=== PATIENT | male | born 1945 | race American Indian/Alaskan Native ===

== ENCOUNTER 2016-09-16 23:19 | Inpatient (IN) | payer MEDICARE, OTHER ==
--- NOTE | 2016-09-16 23:33 | C.PDOC ---
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 Pt is awake and alert oriented x3, uncooperative and refuses to be treated or examined. Time Seen by Provider: 09/16/16 23:32 Chief Complaint (Nursing): Altered Mental Status History Per: Patient History/Exam Limitations: None Onset/Duration Of Symptoms: Hrs Current Symptoms Are (Timing): Still Present Usual Baseline: Alert Oriented Speech Is: Normal Severity: None Recent travel outside of the [place]: No Additional History Per: Patient Past Medical History Reviewed: Historical Data, Nursing Documentation, Vital Signs Vital Signs: Last Vital Signs Temp 97.5 F L 09/16/16 23:30 Pulse 124 H 09/16/16 23:30 Resp 18 09/16/16 23:30 BP 241/116 H 09/16/16 23:30 Pulse Ox 99 09/16/16 23:59 Family History: States: Unknown Family Hx Review Of Systems Constitutional: Negative for: Fever, Chills ENT: Negative for: Throat Pain Cardiovascular: Negative for: Chest Pain Respiratory: Negative for: Shortness of Breath Gastrointestinal: Negative for: Nausea, Vomiting, Abdominal Pain Genitourinary: Negative for: Dysuria Musculoskeletal: Negative for: Back Pain Skin: Negative for: Rash Neurological: Positive for: Confusion Psych: Negative for: Anxiety ED Course And Treatment ECG: Interpreted By Me, Viewed By Me ECG Rhythm: Sinus Rhythm, Nonspecific Changes O2 Sat by Pulse Oximetry: 99 (Ra) Pulse Ox Interpretation: Normal - Radiology CXR: Interpreted by Me, Viewed By Me CXR Interpretation: No: Infiltrates, Fracture, Pnemothorax Medical Decision Making Medical Decision Making: see paper chart Disposition Discussed With : Yaniv Dinero Comment: accepted the pt on his service Doctor Will See Patient In The: Hospital Counseled Patient/Family Regarding: Studies Performed, Diagnosis - Disposition Disposition: HOSPITALIZED Disposition Time: 23:33 Condition: FAIR - POA Present On Arrival: None - Clinical Impression Clinical Impression: Change in mental status, Dementia - Scribe Statement The provider has reviewed the documentation as recorded by the Scribe Ashia almazan All medical record entries made by the Scribe were at my direction and personally dictated by me. I have reviewed the chart and agree that the record accurately reflects my personal performance of the history, physical exam, medical decision making, and the department course for this patient. I have also personally directed, reviewed, and agree with the discharge instructions and disposition. Decision To Admit - Pt Status Changed To: Hospital Disposition Of: Inpatient - Admit Certification Admit to Inpatient:: After my assessment, the patient will require hospitalization for at least two midnights. This is because of the severity of symptoms shown, intensity of services needed, and/or the medical risk in this patient being treated as an outpatient. - InPatient: Physician Admission Certification:: After my assessment, the patient will require hospitalization for at least two midnights. This is because of the severity of symptoms shown, intensity of services needed, and/or the medical risk in this patient being treated as an outpatient. - . Bed Request Type: Telemetry Admitting Physician: Yaniv Dinero Patient Diagnosis: Change in mental status, Dementia
[2016-09-17] MEDS ORDERED: Enalaprilat 2.5 MG/2 ML IV ONE (05:34)
[2016-09-17] MEDS ORDERED: Metoprolol 1 mg/ml Inj IVP ONE (05:34)
[2016-09-17] MEDS ORDERED: Nitroglycerin 2% Ointment Foilpak UD TOP ONE (05:34)
--- NOTE | 2016-09-17 07:33 | CT ---
PROCEDURE: CT HEAD WITHOUT CONTRAST. HISTORY: Altered mental status COMPARISON: None available. TECHNIQUE: Axial computed tomography images were obtained through the head/brain without intravenous contrast. Radiation dose: Total exam DLP = 1075 mGy-cm. This CT exam was performed using one or more of the following dose reduction techniques: Automated exposure control, adjustment of the mA and/or kV according to patient size, and/or use of iterative reconstruction technique. FINDINGS: HEMORRHAGE: No intracranial hemorrhage. BRAIN: Cerebral and cerebellar atrophy. Scattered focal lucencies in the subcortical and periventricular white matter suggestive for chronic microvascular ischemic change. Encephalomalacia in the left posterior parietal/ temporal lobe which may be consistent with chronic infarct. Additional hypodensity in the anterior right temporal lobe inferiorly which may represent the sequelae of chronic infarct. Bilateral lacunar infarcts. VENTRICLES: Unremarkable. No hydrocephalus. CALVARIUM: Unremarkable. PARANASAL SINUSES: Unremarkable as visualized. No significant inflammatory changes. MASTOID AIR CELLS: Unremarkable as visualized. No inflammatory changes. OTHER FINDINGS: Intracranial arterial calcifications. IMPRESSION: Cerebral and cerebellar atrophy. Small vessel ischemic/degenerative changes. Encephalomalacia in the left posterior parietal/ temporal lobe which may be consistent with chronic infarct. Additional hypodensity in the anterior right temporal lobe inferiorly which may represent the sequelae of chronic infarct. Additional findings as above. If focal neurologic deficit persists, consider MRI. These findings were preliminarily reported at 12:22 a.m. on 09/17/[address] Robert Toribio from [facility].
[2016-09-17 07:44] LABS: INR 1.1
[2016-09-17 07:45] LABS: BASO % 0.5 % (0.0-2.0); EOS % 0.2 % (0.0-4.0); HEMATOCRIT 40.3 % (35.0-51.0); LYMPH # 0.9 K/uL (1.0-4.3); LYMPH % 11.8 % (20.0-40.0); MEAN CELL VOLUME 88.4 fL (80.0-94.0); MEAN CORPUSCULAR HEMOGLOBIN 28.8 pg (27.0-31.0); MEAN CORPUSCULAR HGB CONC 32.6 g/dL (33.0-37.0); MEAN PLATELET VOLUME 9.5 fL (7.2-11.7); MONO # 0.8 K/uL (0.0-0.8); MONO % 9.6 % (0.0-10.0); RED CELL DISTRIBUTION WIDTH 14.6 % (11.5-14.5)
[2016-09-17 08:08] LABS: ALB/GLOB RATIO 1.4 (1.0-2.1); ALKALINE PHOSPHATASE 124 U/L (38-126); AST/SGOT 33 U/L (17-59); BILIRUBIN,DIRECT 0.5 mg/dL (0.0-0.4); BILIRUBIN,TOTAL 0.9 mg/dL (0.2-1.3); TOTAL PROTEIN 8.4 g/dL (6.3-8.3)
[2016-09-17 08:09] LABS: ALT/SGPT 11 U/L (21-72)
[2016-09-17 08:11] LABS: ALB/GLOB RATIO 1.4 (1.0-2.1); ALCOHOL SERUM < 20 mg/dl (0-10); ALKALINE PHOSPHATASE 142 U/L (38-126); ALT/SGPT 15 U/L (21-72); AST/SGOT 32 U/L (17-59); BILIRUBIN,TOTAL 0.9 mg/dL (0.2-1.3); BLOOD UREA NITROGEN 31 mg/dL (9-20); CALCIUM 10.4 mg/dl (8.6-10.4); CARBON DIOXIDE 27 mmol/L (22-30); CHLORIDE 101 mmol/L (98-107); GFR AFRICAN-AMERICAN 38; GLUCOSE,RANDOM 123 mg/dL (75-110); POTASSIUM 3.8 mmol/L (3.6-5.2); SODIUM 142 mmol/L (132-148); TOTAL PROTEIN 8.4 g/dL (6.3-8.3)
[2016-09-17 08:37] LABS: THYROID STIMULATING HORMONE 0.47 mIU/L (0.46-4.68)
--- NOTE | 2016-09-17 08:37 | RAD ---
HISTORY: PORTABLE CXR COMPARISON: No prior. FINDINGS: LUNGS: Mild venous congestion. Biapical pleural thickening with upper lobe granulomatous changes. Bibasilar breast and nipple shadows. PLEURA: No significant pleural effusion identified, no pneumothorax apparent. CARDIOVASCULAR: Tortuous aorta. Mild cardiomegaly. OSSEOUS STRUCTURES: No significant abnormalities. VISUALIZED UPPER ABDOMEN: Normal. OTHER FINDINGS: None. IMPRESSION: Mild venous congestion. Biapical pleural thickening with upper lobe granulomatous changes. Bibasilar breast and nipple shadows.
[2016-09-17 08:45] LABS: RBC URINE 1 /hpf (0-3); URINE BILIRUBIN NEGATIVE (NEGATIVE); URINE BLOOD NEGATIVE (NEGATIVE); URINE COLOR Yellow (YELLOW); URINE GLUCOSE (UA) 1+ mg/dL (Normal); URINE KETONE TRACE mg/dL (NEGATIVE); URINE LEUKOCYTE ESTERASE NEG Leu/uL (Negative); URINE PROTEIN 1+ mg/dL (NEGATIVE); URINE UROBILINOGEN NORMAL mg/dL (0.2-1.0); WBC URINE 1 /hpf (0-5)
[2016-09-17 09:12] LABS: FOLATE > 20.0 ng/mL
[2016-09-17] MEDS: Pantoprazole 40 mg EC Tab PO SCH (09:52)
[2016-09-17] MEDS ORDERED: Enoxaparin 30 mg Syringe SC SCH (10:00)
--- NOTE | 2016-09-17 10:44 | CP.PCM.HP ---
Past Patient History - Past Social History Smoking Status: Heavy Smoker > 10 Cigarettes Daily - CARDIAC Hx Cardiac Disorders: Yes Hx Hypertension: Yes Hx Peripheral Vascular Disease: Yes - PSYCHIATRIC Hx Substance Use: No - ANESTHESIA Hx Anesthesia: No Meds Allergies/Adverse Reactions: Allergies Allergy/AdvReac Type Severity Reaction Status Date / Time No Known Allergies Allergy Verified 09/16/16 23:44 Physical Exam - Constitutional Appears: Well - Head Exam Head Exam: ATRAUMATIC, NORMAL INSPECTION, NORMOCEPHALIC - Eye Exam Eye Exam: EOMI, Normal appearance, PERRL Pupil Exam: NORMAL ACCOMODATION, PERRL - ENT Exam ENT Exam: Mucous Membranes Moist, Normal Exam - Neck Exam Neck exam: Positive for: Normal Inspection - Respiratory Exam Respiratory Exam: Decreased Breath Sounds - Cardiovascular Exam Cardiovascular Exam: REGULAR RHYTHM, +S1, +S2 - GI/Abdominal Exam GI & Abdominal Exam: Diminished Bowel Sounds, Soft - Rectal Exam Rectal Exam: Deferred Results - Vital Signs Recent Vital Signs: Last Vital Signs Temp 98.1 F 09/17/16 08:34 Pulse 72 09/17/16 08:34 Resp 18 09/17/16 08:34 BP 207/93 H 09/17/16 08:34 Pulse Ox 99 09/17/16 08:34 - Labs Result Diagrams: 09/17/16 00:30 09/17/16 00:30 Labs: Laboratory Results - last 24 hr 09/17/16 09/17/16 09/17/16 06:15 07:32 07:32 ESR 30 H Total Bilirubin 0.9 Direct Bilirubin 0.5 H AST 33 ALT 11 L Alkaline Phosphatase 124 Ammonia C-React Prot High Sens Total Protein 8.4 H Albumin 4.9 Globulin 3.5 Albumin/Globulin Ratio 1.4 Vitamin B12 733 Folate > 20.0 TSH 3rd Generation 0.47 Urine Color Yellow Urine Clarity Hazy Urine pH 5.0 Ur Specific [place] 1.018 Urine Protein 1+ H Urine Glucose (UA) 1+ H Urine Ketones Trace Urine Blood Negative Urine Nitrate Negative Urine Bilirubin Negative Urine Urobilinogen Normal Ur Leukocyte Esterase Neg Urine WBC (Auto) 1 Urine RBC (Auto) 1 Ur Squamous Epith Cells < 1 Hyaline Casts 6-10 H 09/17/16 09/17/16 07:32 07:32 ESR Total Bilirubin Direct Bilirubin AST ALT Alkaline Phosphatase Ammonia < 9 L C-React Prot High Sens > 15.00 H Total Protein Albumin Globulin Albumin/Globulin Ratio Vitamin B12 Folate TSH 3rd Generation Urine Color Urine Clarity Urine pH Ur Specific [place] Urine Protein Urine Glucose (UA) Urine Ketones Urine Blood Urine Nitrate Urine Bilirubin Urine Urobilinogen Ur Leukocyte Esterase Urine WBC (Auto) Urine RBC (Auto) Ur Squamous Epith Cells Hyaline Casts
[2016-09-17] MEDS: Nitroglycerin 2% Ointment Foilpak UD TOP PRN (18:00)
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
[2016-09-18] MEDS: Nitroglycerin 2% Ointment Foilpak UD TOP PRN (00:27)
[2016-09-18] MEDS: Pantoprazole 40 mg EC Tab PO SCH (19:10)
[2016-09-18] MEDS: Enoxaparin 40 mg Syringe SC SCH (19:11)
--- NOTE | 2016-09-18 22:33 | CP.PCM.PN ---
Objective - Vital Signs/Intake and Output Vital Signs (last 24 hours): Temp Pulse Resp BP Pulse Ox 99.2 F 80 20 195/89 H 98 09/17/16 21:47 09/17/16 21:47 09/17/16 21:47 09/17/16 21:47 09/17/16 21:47 - Medications Medications: Current Medications Enoxaparin Sodium (Lovenox) 40 mg SC DAILY [facility] Last Admin: 09/18/16 19:11 Dose: Not Given Hydralazine HCl (Apresoline) 50 mg PO Q8 [facility] Last Admin: 09/18/16 21:41 Dose: Not Given Nitroglycerin (Nitro-Bid 2% Oint) 1 ea TOP Q6 PRN PRN Reason: Diastolic blood pressure Last Admin: 09/18/16 00:27 Dose: 1 ea Pantoprazole Sodium (Protonix Ec Tab) 40 mg PO DAILY [facility] Last Admin: 09/18/16 19:10 Dose: Not Given Thiamine HCl (Vitamin B1 Tab) 100 mg PO DAILY [facility] Last Admin: 09/18/16 19:10 Dose: Not Given - Labs Labs: PT 12.7 SECONDS (9.7-12.2) H 09/17/16 00:30 INR 1.1 09/17/16 00:30
[2016-09-19] MEDS: Nitroglycerin 2% Ointment Foilpak UD TOP PRN ×2 (06:11→11:24)
--- NOTE | 2016-09-19 09:50 | CP.PCM.PN ---
<JulienZari - Last Filed: 09/19/16 10:46> Subjective - Date & Time of Evaluation Date of Evaluation: 09/19/16 Time of Evaluation: 10:46 - Subjective Subjective: Medicine Progress Note Patient seen and examined. Patient was asleep but woken up easily when called. Patient says that he feels fine today. Patient appears annoyed that he was woken up and states he does not want anything from me. Denies chest pain, lack of appetite and shortness of breath. Objective - Vital Signs/Intake and Output Vital Signs (last 24 hours): Temp Pulse Resp BP Pulse Ox 97.7 F 89 20 166/75 H 97 09/19/16 08:25 09/19/16 08:25 09/19/16 08:25 09/19/16 08:25 09/17/16 23:40 Intake and Output: 09/19/16 09/19/16 06:59 18:59 Intake Total 240 Balance 240 - Medications Medications: Current Medications Enoxaparin Sodium (Lovenox) 40 mg SC DAILY [facility] Last Admin: 09/18/16 19:11 Dose: Not Given Hydralazine HCl (Apresoline) 50 mg PO Q8 [facility] Last Admin: 09/19/16 06:12 Dose: 50 mg Nitroglycerin (Nitro-Bid 2% Oint) 1 ea TOP Q6 PRN PRN Reason: Diastolic blood pressure Last Admin: 09/19/16 06:11 Dose: 1 ea Pantoprazole Sodium (Protonix Ec Tab) 40 mg PO DAILY [facility] Last Admin: 09/18/16 19:10 Dose: Not Given Thiamine HCl (Vitamin B1 Tab) 100 mg PO DAILY [facility] Last Admin: 09/18/16 19:10 Dose: Not Given - Labs Labs: PT 12.7 SECONDS (9.7-12.2) H 09/17/16 00:30 INR 1.1 09/17/16 00:30 - Constitutional Appears: Non-toxic, No Acute Distress - Head Exam Head Exam: ATRAUMATIC, NORMOCEPHALIC - Eye Exam Eye Exam: EOMI, Normal appearance - ENT Exam ENT Exam: Mucous Membranes Moist - Respiratory Exam Respiratory Exam: Clear to Ausculation Bilateral, NORMAL BREATHING PATTERN - Cardiovascular Exam Cardiovascular Exam: REGULAR RHYTHM, +S1, +S2 - GI/Abdominal Exam GI & Abdominal Exam: Soft, Normal Bowel Sounds - Extremities Exam Extremities Exam: Normal Inspection. absent: Pedal Edema - Neurological Exam Neurological Exam: Alert, Awake - Psychiatric Exam Psychiatric exam: Normal Affect, Normal Mood - Skin Skin Exam: Dry, Intact, Normal Color, Warm Assessment and Plan - Assessment and Plan (Free Text) Assessment: 1. Altered Mental status Neuro Dr Hardwick on board- help appreciated f/u MRI brain CT head showed diffuse atrophy, small vessel disease (see full report) physical therapy eval Fall risk protocol f/u carotid dopplers f/u EEG UDS negative Ammonia level normal f/u psych evaluation 2. Alcohol abuse fall risk protocol IVF THiamine PO daily Multivitamin PO daily FOlic acid PO daily 3. CEM BUN/Cr 31/2.1 on 09/17 f/u CMP today 4. HTN Uncontrolled Hydralazine 50mg PO q8h Start Norvasc 5mg PO daily today Monitor and adjust meds 5. Prophylactic measures SCDs Protonix all management per Dr Dinero. discussed with attending. <Yaniv Dinero S - Last Filed: 09/19/16 15:17> Objective - Vital Signs/Intake and Output Vital Signs (last 24 hours): Temp Pulse Resp BP Pulse Ox 97.7 F 88 20 146/80 97 09/19/16 08:25 09/19/16 13:24 09/19/16 08:25 09/19/16 14:00 09/17/16 23:40 Intake and Output: 09/19/16 09/19/16 06:59 18:59 Intake Total 240 480 Output Total 400 Balance 240 80 - Medications Medications: Current Medications Amlodipine Besylate (Norvasc) 5 mg PO DAILY [facility] Last Admin: 09/19/16 10:07 Dose: 5 mg Enoxaparin Sodium (Lovenox) 40 mg SC DAILY [facility] Last Admin: 09/19/16 10:07 Dose: 40 mg Folic Acid (Folic Acid) 1 mg PO DAILY [facility] Last Admin: 09/19/16 10:07 Dose: 1 mg Hydralazine HCl (Apresoline) 50 mg PO Q8 [facility] Last Admin: 09/19/16 14:37 Dose: 50 mg Multivitamins (Hexavitamin) 1 tab PO DAILY [facility] Last Admin: 09/19/16 10:07 Dose: 1 tab Nitroglycerin (Nitro-Bid 2% Oint) 1 ea TOP Q6 PRN PRN Reason: Diastolic blood pressure Last Admin: 09/19/16 11:24 Dose: 1 ea Pantoprazole Sodium (Protonix Ec Tab) 40 mg PO DAILY [facility] Last Admin: 09/19/16 10:07 Dose: 40 mg Thiamine HCl (Vitamin B1 Tab) 100 mg PO DAILY [facility] Last Admin: 09/19/16 10:07 Dose: 100 mg - Labs Labs: 09/19/16 11:51 09/19/16 11:51 PT 12.7 SECONDS (9.7-12.2) H 09/17/16 00:30 INR 1.1 09/17/16 00:30 Attending/Attestation - Attestation I have personally seen and examined this patient.: Yes I have fully participated in the care of the patient.: Yes I have reviewed all pertinent clinical information, including history, physical exam and plan: Yes Notes (Text): 09/19/16 15:17 admited for further wokr up amrik underwood from dr. woodson pt refsues all work up
[2016-09-19] MEDS ORDERED: Sodium Chloride 0.9% 1,000 ML IV SCH (10:00)
[2016-09-19] MEDS: Multiple Vitamins Tab PO SCH (10:07)
[2016-09-19] MEDS: Enoxaparin 40 mg Syringe SC SCH (10:07)
[2016-09-19] MEDS: Pantoprazole 40 mg EC Tab PO SCH (10:07)
[2016-09-19 11:59] LABS: BASO % 0.6 % (0.0-2.0); EOS # 0.3 K/uL (0.0-0.7); EOS % 5.2 % (0.0-4.0); HEMATOCRIT 39.7 % (35.0-51.0); LYMPH # 1.5 K/uL (1.0-4.3); LYMPH % 22.1 % (20.0-40.0); MEAN CELL VOLUME 89.3 fL (80.0-94.0); MEAN CORPUSCULAR HEMOGLOBIN 29.2 pg (27.0-31.0); MEAN CORPUSCULAR HGB CONC 32.7 g/dL (33.0-37.0); MEAN PLATELET VOLUME 9.7 fL (7.2-11.7); MONO # 0.7 K/uL (0.0-0.8); MONO % 10.5 % (0.0-10.0); NRBC % 0.1 % (0.0-2.0); RED CELL DISTRIBUTION WIDTH 14.2 % (11.5-14.5); WHITE BLOOD COUNT 6.7 K/uL (4.8-10.8)
[2016-09-19 12:08] LABS: CHLORIDE 96 mmol/L (98-107)
[2016-09-19 12:09] LABS: POTASSIUM 3.7 mmol/L (3.6-5.2); SODIUM 137 mmol/L (132-148)
[2016-09-19 12:11] LABS: ALB/GLOB RATIO 1.5 (1.0-2.1); AST/SGOT 25 U/L (17-59); BILIRUBIN,TOTAL 0.8 mg/dL (0.2-1.3); CARBON DIOXIDE 31 mmol/L (22-30); GFR AFRICAN-AMERICAN > 60; TOTAL PROTEIN 7.4 g/dL (6.3-8.3)
[2016-09-19 12:12] LABS: ALKALINE PHOSPHATASE 107 U/L (38-126); ALT/SGPT 16 U/L (21-72); BLOOD UREA NITROGEN 23 mg/dL (9-20); CALCIUM 9.9 mg/dl (8.6-10.4); GLUCOSE,RANDOM 103 mg/dL (75-110)
--- NOTE | 2016-09-19 14:52 | PCM.PSYCH ---
Initial Psychiatric Evaluation - Initial Psychiatric Evaluation Chief Complaint (in patient's own words): "Nothing" History of Present Illness and Precipitating Events: The patient is seen, chart reviewed and case discussed. Consultation was requested for patient's acute mental status change. This is a 70-year-old male, very uncooperative and is a poor historian. He claims he lives with his mother in [place] but it is not confirmed. Given his age, he may not be living with his mother. There is no phone numbers in the chart for the rewriter to call, but his nurse told me that his cousin was called by our patient case manager. Patient's past history is unclear as he is not answering questions appropriately. He is very evasive and he says "Oh my God" to most of the questions and looks away or tries to fall back asleep. His memory seems to be very poor, just as his attention. He seems to be oriented to place but not to time or person. It is reported that he may have alcohol dependence but it is not clear when. He is not in withdrawal right now. He denied drug use. Past psych hx: Denied but is guarded/evasive Medical hx: HTN? Family psych hx: Unknown Current Medications: Active Medications Generic Name Dose Route Start Last Admin Trade Name Freq PRN Reason Stop Dose Admin Amlodipine Besylate 5 mg 09/19/16 10:09/19/16 10:07 Norvasc PO 5 mg DAILY [facility] Administration Enoxaparin Sodium 40 mg 09/18/16 10:00 09/19/16 10:07 Lovenox SC 40 mg DAILY [facility] Administration Folic Acid 1 mg 09/19/16 10:09/19/16 10:07 Folic Acid PO 1 mg DAILY [facility] Administration Hydralazine HCl 50 mg 09/18/16 19:09 09/19/16 14:37 Apresoline PO 50 mg Q8 [facility] Administration Multivitamins 1 tab 09/19/16 10:00 09/19/16 10:07 Hexavitamin PO 1 tab DAILY [facility] Administration Nitroglycerin 1 ea 09/17/16 11:17 09/19/16 11:24 Nitro-Bid 2% Oint TOP 1 ea Q6 PRN Administration Diastolic blood pressure Pantoprazole Sodium 40 mg 09/17/16 10:00 09/19/16 10:07 Protonix Ec Tab PO 40 mg DAILY [facility] Administration Thiamine HCl 100 mg 09/18/16 10:00 09/19/16 10:07 Vitamin B1 Tab PO 100 mg DAILY [facility] Administration Past Psychiatric History - Past Psychiatric History Pertinent Medical Hx (Current Medical&Sleep Prob, Allergies): Allergies Allergy/AdvReac Type Severity Reaction Status Date / Time No Known Allergies Allergy Verified 09/16/16 23:44 Unobtainable 09/16/16 Review of Systems - Psychiatric Psychiatric: Irritability. absent: Homicidal Ideation, Suicidal Ideation Mental Status Examination - Personal Presentation Personal Presentation: Looks stated age - Affect Affect: Blunted (odd) - Motor Activity Motor Activity: Other (fidgety) - Reliability in Providing Information Reliability in Providing Information: Poor, due to alteration in thoughts, Poor , due to cognitve impairment - Speech Speech: Disorganized - Mood Mood: Other (irate) - Formal Thought Process Formal Thought Process: Paranoia (Likely), Loosening of associations - Cognitive Functions Orientation: Place Sensorium: Drowsy Attention/Concentration: Easily distracted Abstract Thinking: [place] Estimate of Intelligence: Below average Judgement: Imparied, as evidence by: Poor judgement Memory: Recent impaired, as evidence by: Inability to recall events of the day, Remote impaired as evidenced by: Inability to recall sig life events - Risk Risk: Diminished functioning - Limitations Limitations: Living alone DSM 5 DX - DSM 5 DSM 5 Diagnosis: Dementia w/o behavioal disturbances - Recommended/Plan of Treatment Treatment Recommendations and Plan of Treatment: 1. Dementia work-up, i.e. TFTs, Vit B12, Folate, RPR, etc. 2. prn haldol, inderal or trazodone 3. Do not use benzos unless he is very agitated, due to risk of confusion and falls 4. Frequent orientation, support and psychoeducation 5. Contact cousin re discharge planning 33 min
[2016-09-20] MEDS: Pantoprazole 40 mg EC Tab PO SCH (09:54)
[2016-09-20] MEDS: Multiple Vitamins Tab PO SCH (09:54)
[2016-09-20] MEDS: Enoxaparin 40 mg Syringe SC SCH (09:55)
[2016-09-20 11:40] LABS: WHITE BLOOD COUNT 5.5 K/uL (4.8-10.8)
[2016-09-20 11:48] LABS: BASO % 0.6 % (0.0-2.0); EOS # 0.4 K/uL (0.0-0.7); EOS % 6.7 % (0.0-4.0); HEMATOCRIT 37.1 % (35.0-51.0); LYMPH # 1.1 K/uL (1.0-4.3); LYMPH % 20.3 % (20.0-40.0); MEAN CELL VOLUME 88.8 fL (80.0-94.0); MEAN CORPUSCULAR HEMOGLOBIN 29.6 pg (27.0-31.0); MEAN CORPUSCULAR HGB CONC 33.3 g/dL (33.0-37.0); MONO # 0.6 K/uL (0.0-0.8); MONO % 11.8 % (0.0-10.0); NRBC % 0.1 % (0.0-2.0); RED CELL DISTRIBUTION WIDTH 14.4 % (11.5-14.5)
[2016-09-20 11:54] LABS: CHLORIDE 100 mmol/L (98-107); POTASSIUM 3.5 mmol/L (3.6-5.2); SODIUM 140 mmol/L (132-148)
[2016-09-20 11:56] LABS: GFR AFRICAN-AMERICAN > 60
[2016-09-20 11:57] LABS: ALB/GLOB RATIO 1.3 (1.0-2.1); ALKALINE PHOSPHATASE 98 U/L (38-126); ALT/SGPT 13 U/L (21-72); AST/SGOT 31 U/L (17-59); BILIRUBIN,TOTAL 0.6 mg/dL (0.2-1.3); BLOOD UREA NITROGEN 18 mg/dL (9-20); CARBON DIOXIDE 29 mmol/L (22-30); GLUCOSE,RANDOM 92 mg/dL (75-110); TOTAL PROTEIN 7.1 g/dL (6.3-8.3)
--- NOTE | 2016-09-20 12:57 | CP.PCM.PN ---
Subjective - Date & Time of Evaluation Date of Evaluation: 09/20/16 Time of Evaluation: 09:40 - Subjective Subjective: clinically same Objective - Vital Signs/Intake and Output Vital Signs (last 24 hours): Temp Pulse Resp BP Pulse Ox 98.2 F 65 20 184/77 H 96 09/20/16 11:49 09/20/16 11:49 09/20/16 11:49 09/20/16 11:49 09/20/16 11:49 - Medications Medications: Current Medications Amlodipine Besylate (Norvasc) 10 mg PO DAILY [facility] Enoxaparin Sodium (Lovenox) 40 mg SC DAILY [facility] Last Admin: 09/20/16 09:55 Dose: 40 mg Folic Acid (Folic Acid) 1 mg PO DAILY [facility] Last Admin: 09/20/16 09:54 Dose: 1 mg Haloperidol (Haldol) 2 mg PO Q4H PRN PRN Reason: agitation, max 4x/24h Haloperidol Lactate (Haldol) 2 mg IM Q4H PRN PRN Reason: severe agitation, max 4x/24h Hydralazine HCl (Apresoline) 50 mg PO TID [facility] Multivitamins (Hexavitamin) 1 tab PO DAILY [facility] Last Admin: 09/20/16 09:54 Dose: 1 tab Nitroglycerin (Nitro-Bid 2% Oint) 1 ea TOP Q6 PRN PRN Reason: Diastolic blood pressure Last Admin: 09/19/16 11:24 Dose: 1 ea Nitroglycerin (Nitro-Bid 2% Oint) 1 ea TOP Q6 [facility] Pantoprazole Sodium (Protonix Ec Tab) 40 mg PO DAILY [facility] Last Admin: 09/20/16 09:54 Dose: 40 mg Thiamine HCl (Vitamin B1 Tab) 100 mg PO DAILY [facility] Last Admin: 09/20/16 09:54 Dose: 100 mg - Labs Labs: 09/20/16 11:23 09/20/16 11:23 PT 12.7 SECONDS (9.7-12.2) H 09/17/16 00:30 INR 1.1 09/17/16 00:30 - Constitutional Appears: Well - Head Exam Head Exam: ATRAUMATIC, NORMAL INSPECTION, NORMOCEPHALIC - Eye Exam Eye Exam: EOMI, Normal appearance, PERRL Pupil Exam: NORMAL ACCOMODATION, PERRL - ENT Exam ENT Exam: Mucous Membranes Moist, Normal Exam - Neck Exam Neck Exam: Full ROM, Normal Inspection. absent: Lymphadenopathy - Respiratory Exam Respiratory Exam: Decreased Breath Sounds - Cardiovascular Exam Cardiovascular Exam: REGULAR RHYTHM, +S1, +S2 - GI/Abdominal Exam GI & Abdominal Exam: Soft, Diminished Bowel Sounds - Rectal Exam Rectal Exam: Deferred
[2016-09-20] MEDS: Potassium Chloride 20 mEq ER Tab PO SCH (18:39)
[2016-09-20] MEDS: Nitroglycerin 2% Ointment Foilpak UD TOP SCH (18:39)
[2016-09-21] MEDS: Nitroglycerin 2% Ointment Foilpak UD TOP SCH ×6 (00:17→23:59)
[2016-09-21] MEDS: Enoxaparin 40 mg Syringe SC SCH (09:32)
[2016-09-21] MEDS: Potassium Chloride 20 mEq ER Tab PO SCH (09:32)
[2016-09-21] MEDS: Pantoprazole 40 mg EC Tab PO SCH (09:32)
[2016-09-21] MEDS: Multiple Vitamins Tab PO SCH (09:32)
[2016-09-21 11:36] LABS: BASO % 0.9 % (0.0-2.0); EOS # 0.3 K/uL (0.0-0.7); EOS % 5.8 % (0.0-4.0); HEMATOCRIT 37.1 % (35.0-51.0); LYMPH % 20.8 % (20.0-40.0); MEAN CELL VOLUME 88.4 fL (80.0-94.0); MEAN CORPUSCULAR HEMOGLOBIN 29.3 pg (27.0-31.0); MEAN CORPUSCULAR HGB CONC 33.2 g/dL (33.0-37.0); MEAN PLATELET VOLUME 9.7 fL (7.2-11.7); MONO # 0.6 K/uL (0.0-0.8); RED CELL DISTRIBUTION WIDTH 14.2 % (11.5-14.5); WHITE BLOOD COUNT 4.9 K/uL (4.8-10.8)
[2016-09-21 12:08] LABS: CHLORIDE 97 mmol/L (98-107); POTASSIUM 3.9 mmol/L (3.6-5.2); SODIUM 138 mmol/L (132-148)
--- NOTE | 2016-09-21 12:08 | CP.PCM.PN ---
Subjective - Date & Time of Evaluation Date of Evaluation: 09/21/16 Time of Evaluation: 12:00 - Subjective Subjective: clinically same Objective - Vital Signs/Intake and Output Vital Signs (last 24 hours): Temp Pulse Resp BP Pulse Ox 98.0 F 91 H 18 186/90 H 98 09/21/16 07:25 09/21/16 08:44 09/21/16 07:25 09/21/16 07:25 09/21/16 07:25 - Medications Medications: Current Medications Amlodipine Besylate (Norvasc) 10 mg PO DAILY [facility] Last Admin: 09/21/16 09:32 Dose: Not Given Enoxaparin Sodium (Lovenox) 40 mg SC DAILY [facility] Last Admin: 09/21/16 09:32 Dose: Not Given Folic Acid (Folic Acid) 1 mg PO DAILY [facility] Last Admin: 09/21/16 09:31 Dose: Not Given Haloperidol (Haldol) 2 mg PO Q4H PRN PRN Reason: agitation, max 4x/24h Last Admin: 09/20/16 18:41 Dose: 2 mg Haloperidol Lactate (Haldol) 2 mg IM Q4H PRN PRN Reason: severe agitation, max 4x/24h Hydralazine HCl (Apresoline) 50 mg PO TID [facility] Last Admin: 09/21/16 09:31 Dose: Not Given Hydralazine HCl (Apresoline) 5 mg IVP Q6H PRN PRN Reason: Other Hydrochlorothiazide (Hydrodiuril) 25 mg PO DAILY [facility] Multivitamins (Hexavitamin) 1 tab PO DAILY [facility] Last Admin: 09/21/16 09:32 Dose: Not Given Nitroglycerin (Nitro-Bid 2% Oint) 1 ea TOP Q6 PRN PRN Reason: Diastolic blood pressure Last Admin: 09/19/16 11:24 Dose: 1 ea Nitroglycerin (Nitro-Bid 2% Oint) 1 ea TOP Q6 [facility] Last Admin: 09/21/16 06:17 Dose: 1 ea Pantoprazole Sodium (Protonix Ec Tab) 40 mg PO DAILY [facility] Last Admin: 09/21/16 09:32 Dose: Not Given Potassium Chloride (K-Dur 20 Meq Er Tab) 40 meq PO DAILY [facility] Last Admin: 09/21/16 09:32 Dose: Not Given Thiamine HCl (Vitamin B1 Tab) 100 mg PO DAILY [facility] Last Admin: 09/21/16 09:32 Dose: Not Given - Labs Labs: 09/21/16 11:23 09/20/16 11:23 PT 12.7 SECONDS (9.7-12.2) H 09/17/16 00:30 INR 1.1 09/17/16 00:30 - Constitutional Appears: Well - Head Exam Head Exam: ATRAUMATIC, NORMAL INSPECTION, NORMOCEPHALIC - Eye Exam Eye Exam: EOMI, Normal appearance, PERRL Pupil Exam: NORMAL ACCOMODATION, PERRL - ENT Exam ENT Exam: Mucous Membranes Moist, Normal Exam - Neck Exam Neck Exam: Full ROM, Normal Inspection. absent: Lymphadenopathy - Respiratory Exam Respiratory Exam: Decreased Breath Sounds - Cardiovascular Exam Cardiovascular Exam: REGULAR RHYTHM, +S1, +S2 - GI/Abdominal Exam GI & Abdominal Exam: Soft, Diminished Bowel Sounds - Rectal Exam Rectal Exam: Deferred
[2016-09-21 12:11] LABS: ALB/GLOB RATIO 1.3 (1.0-2.1); ALKALINE PHOSPHATASE 89 U/L (38-126); ALT/SGPT 19 U/L (21-72); AST/SGOT 26 U/L (17-59); BILIRUBIN,TOTAL 0.6 mg/dL (0.2-1.3); BLOOD UREA NITROGEN 19 mg/dL (9-20); CALCIUM 9.9 mg/dl (8.6-10.4); CARBON DIOXIDE 30 mmol/L (22-30); GFR AFRICAN-AMERICAN > 60; GLUCOSE,RANDOM 97 mg/dL (75-110)
[2016-09-22] MEDS: Nitroglycerin 2% Ointment Foilpak UD TOP SCH ×3 (05:22→18:19)
--- NOTE | 2016-09-22 09:10 | PN ---
DATE: 09/22/2016 NEUROLOGICAL PROBLEM: Toxic versus metabolic encephalopathy which is resolved at present. 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 PHYSICAL EXAMINATION: VITAL SIGNS: Blood pressure 189/86, mean arterial pressure of 120, respiratory rate 16, temperature 98.6 with a pulse rate 85 regular. NEUROLOGIC: The patient is arousable. The patient's speech is normal. No sign of confusion. He moves all 4 extremities. Both proximal muscle weakness related to his atrophy. Otherwise no other long tract sign noted. His mentation is improved. His recent chemistry as well as blood count also normal. If medically stable, patient can be discharged and should have physical therapy , the patient should be followed by either me or any other neurologist to assess his spinal muscular atrophy. Issa Hardwick MD cc: [id number] TT: 09/22/2016 08:11:49 Confirmation # [id number] Dictation # [id number] bailey DIAZ
[2016-09-22] MEDS: Pantoprazole 40 mg EC Tab PO SCH (09:48)
[2016-09-22] MEDS: Enoxaparin 40 mg Syringe SC SCH (09:49)
[2016-09-22] MEDS: Potassium Chloride 20 mEq ER Tab PO SCH (09:55)
--- NOTE | 2016-09-22 10:26 | CARD ---
APPROVED REPORT EKG Measurement Heart [id number] [id number] <Conclusion> Normal sinus rhythm Right atrial enlargement Voltage criteria for left ventricular hypertrophy Nonspecific T wave abnormality Prolonged QT Abnormal ECG
[2016-09-22] MEDS: Multiple Vitamins Tab PO SCH (10:56)
[2016-09-22 11:50] LABS: BASO # 0.1 K/uL (0.0-0.2); BASO % 1.1 % (0.0-2.0); EOS # 0.2 K/uL (0.0-0.7); EOS % 3.6 % (0.0-4.0); HEMATOCRIT 41.3 % (35.0-51.0); LYMPH % 18.8 % (20.0-40.0); MEAN CELL VOLUME 88.4 fL (80.0-94.0); MEAN CORPUSCULAR HGB CONC 32.9 g/dL (33.0-37.0); MEAN PLATELET VOLUME 10.2 fL (7.2-11.7); MONO # 0.5 K/uL (0.0-0.8); MONO % 9.7 % (0.0-10.0); WHITE BLOOD COUNT 5.2 K/uL (4.8-10.8)
[2016-09-22 12:10] LABS: CHLORIDE 98 mmol/L (98-107); POTASSIUM 3.9 mmol/L (3.6-5.2); SODIUM 139 mmol/L (132-148)
[2016-09-22 12:12] LABS: AST/SGOT 23 U/L (17-59); BILIRUBIN,TOTAL 0.7 mg/dL (0.2-1.3); CARBON DIOXIDE 28 mmol/L (22-30); GFR AFRICAN-AMERICAN > 60
[2016-09-22 12:13] LABS: ALB/GLOB RATIO 1.2 (1.0-2.1); ALKALINE PHOSPHATASE 112 U/L (38-126); ALT/SGPT 9 U/L (21-72); BLOOD UREA NITROGEN 19 mg/dL (9-20); CALCIUM 10.3 mg/dl (8.6-10.4); GLUCOSE,RANDOM 94 mg/dL (75-110); TOTAL PROTEIN 7.7 g/dL (6.3-8.3)
--- NOTE | 2016-09-22 18:17 | CP.PCM.PN ---
Subjective - Date & Time of Evaluation Date of Evaluation: 09/22/16 Time of Evaluation: 10:40 - Subjective Subjective: clinically same Objective - Vital Signs/Intake and Output Vital Signs (last 24 hours): Temp Pulse Resp BP Pulse Ox 98.3 F 106 H 18 166/78 H 96 09/22/16 07:10 09/22/16 09:15 09/22/16 07:10 09/22/16 13:20 09/22/16 07:10 Intake and Output: 09/22/16 09/22/16 06:59 18:59 Intake Total 360 Output Total 350 Balance -350 360 - Medications Medications: Current Medications Amlodipine Besylate (Norvasc) 10 mg PO DAILY [facility] Last Admin: 09/22/16 09:49 Dose: 10 mg Enoxaparin Sodium (Lovenox) 40 mg SC DAILY [facility] Last Admin: 09/22/16 09:49 Dose: 40 mg Folic Acid (Folic Acid) 1 mg PO DAILY [facility] Last Admin: 09/22/16 09:49 Dose: 1 mg Haloperidol (Haldol) 2 mg PO Q4H PRN PRN Reason: agitation, max 4x/24h Last Admin: 09/22/16 17:50 Dose: 2 mg Haloperidol Lactate (Haldol) 2 mg IM Q4H PRN PRN Reason: severe agitation, max 4x/24h Hydralazine HCl (Apresoline) 50 mg PO TID [facility] Last Admin: 09/22/16 18:13 Dose: 50 mg Hydralazine HCl (Apresoline) 5 mg IVP Q6H PRN PRN Reason: Other Last Admin: 09/22/16 08:13 Dose: 5 mg Hydrochlorothiazide (Hydrodiuril) 25 mg PO DAILY [facility] Last Admin: 09/22/16 09:48 Dose: 25 mg Multivitamins (Hexavitamin) 1 tab PO DAILY [facility] Last Admin: 09/22/16 10:56 Dose: 1 tab Nitroglycerin (Nitro-Bid 2% Oint) 1 ea TOP Q6 PRN PRN Reason: Diastolic blood pressure Last Admin: 09/19/16 11:24 Dose: 1 ea Nitroglycerin (Nitro-Bid 2% Oint) 1 ea TOP Q6 [facility] Last Admin: 09/22/16 13:28 Dose: 1 ea Pantoprazole Sodium (Protonix Ec Tab) 40 mg PO DAILY [facility] Last Admin: 09/22/16 09:48 Dose: 40 mg Potassium Chloride (K-Dur 20 Meq Er Tab) 40 meq PO DAILY [facility] Last Admin: 09/22/16 09:55 Dose: Not Given Thiamine HCl (Vitamin B1 Tab) 100 mg PO DAILY [facility] Last Admin: 09/22/16 09:48 Dose: 100 mg - Labs Labs: 09/22/16 11:36 09/22/16 11:36 PT 12.7 SECONDS (9.7-12.2) H 09/17/16 00:30 INR 1.1 09/17/16 00:30 - Constitutional Appears: Well - Head Exam Head Exam: ATRAUMATIC, NORMAL INSPECTION, NORMOCEPHALIC - Eye Exam Eye Exam: EOMI, Normal appearance, PERRL Pupil Exam: NORMAL ACCOMODATION, PERRL - ENT Exam ENT Exam: Mucous Membranes Moist, Normal Exam - Neck Exam Neck Exam: Full ROM, Normal Inspection. absent: Lymphadenopathy - Respiratory Exam Respiratory Exam: Decreased Breath Sounds - Cardiovascular Exam Cardiovascular Exam: REGULAR RHYTHM, +S1, +S2 - GI/Abdominal Exam GI & Abdominal Exam: Soft, Diminished Bowel Sounds - Rectal Exam Rectal Exam: Deferred
[2016-09-23] MEDS: Nitroglycerin 2% Ointment Foilpak UD TOP SCH ×4 (00:43→17:52)
[2016-09-23] MEDS: Potassium Chloride 20 mEq ER Tab PO SCH (11:00)
[2016-09-23] MEDS: Enoxaparin 40 mg Syringe SC SCH (11:00)
[2016-09-23] MEDS: Multiple Vitamins Tab PO SCH (11:00)
[2016-09-23] MEDS: Pantoprazole 40 mg EC Tab PO SCH (11:00)
--- NOTE | 2016-09-23 12:43 | CP.PCM.PN ---
Subjective - Date & Time of Evaluation Date of Evaluation: 09/23/16 Time of Evaluation: 11:00 - Subjective Subjective: clinically same Objective - Vital Signs/Intake and Output Vital Signs (last 24 hours): Temp Pulse Resp BP Pulse Ox 98.1 F 108 H 20 134/76 97 09/23/16 08:30 09/23/16 11:00 09/23/16 08:30 09/23/16 11:00 09/23/16 08:30 Intake and Output: 09/23/16 09/23/16 06:59 18:59 Intake Total 480 Balance 480 - Medications Medications: Current Medications Amlodipine Besylate (Norvasc) 10 mg PO DAILY [facility] Last Admin: 09/23/16 11:00 Dose: 10 mg Enoxaparin Sodium (Lovenox) 40 mg SC DAILY [facility] Last Admin: 09/23/16 11:00 Dose: 40 mg Folic Acid (Folic Acid) 1 mg PO DAILY [facility] Last Admin: 09/23/16 11:00 Dose: 1 mg Haloperidol (Haldol) 2 mg PO Q4H PRN PRN Reason: agitation, max 4x/24h Last Admin: 09/22/16 17:50 Dose: 2 mg Haloperidol Lactate (Haldol) 2 mg IM Q4H PRN PRN Reason: severe agitation, max 4x/24h Hydralazine HCl (Apresoline) 50 mg PO TID [facility] Last Admin: 09/23/16 11:00 Dose: 50 mg Hydralazine HCl (Apresoline) 5 mg IVP Q6H PRN PRN Reason: Other Last Admin: 09/23/16 00:44 Dose: 5 mg Hydrochlorothiazide (Hydrodiuril) 25 mg PO DAILY [facility] Last Admin: 09/23/16 11:00 Dose: 25 mg Multivitamins (Hexavitamin) 1 tab PO DAILY [facility] Last Admin: 09/23/16 11:00 Dose: 1 tab Nitroglycerin (Nitro-Bid 2% Oint) 1 ea TOP Q6 PRN PRN Reason: Diastolic blood pressure Last Admin: 09/19/16 11:24 Dose: 1 ea Nitroglycerin (Nitro-Bid 2% Oint) 1 ea TOP Q6 [facility] Last Admin: 09/23/16 06:01 Dose: 1 ea Pantoprazole Sodium (Protonix Ec Tab) 40 mg PO DAILY [facility] Last Admin: 09/23/16 11:00 Dose: 40 mg Potassium Chloride (K-Dur 20 Meq Er Tab) 40 meq PO DAILY [facility] Last Admin: 09/23/16 11:00 Dose: 40 meq Thiamine HCl (Vitamin B1 Tab) 100 mg PO DAILY [facility] Last Admin: 09/23/16 11:00 Dose: 100 mg - Labs Labs: 09/22/16 11:36 09/22/16 11:36 PT 12.7 SECONDS (9.7-12.2) H 09/17/16 00:30 INR 1.1 09/17/16 00:30 - Constitutional Appears: Well - Head Exam Head Exam: ATRAUMATIC, NORMAL INSPECTION, NORMOCEPHALIC - Eye Exam Eye Exam: EOMI, Normal appearance, PERRL Pupil Exam: NORMAL ACCOMODATION, PERRL - ENT Exam ENT Exam: Mucous Membranes Moist, Normal Exam - Neck Exam Neck Exam: Full ROM, Normal Inspection. absent: Lymphadenopathy - Respiratory Exam Respiratory Exam: Decreased Breath Sounds - Cardiovascular Exam Cardiovascular Exam: REGULAR RHYTHM, +S1, +S2 - GI/Abdominal Exam GI & Abdominal Exam: Soft, Diminished Bowel Sounds - Rectal Exam Rectal Exam: Deferred Assessment and Plan - Assessment and Plan (Free Text) Plan: dischjarge planning today discusse [facility] staff if no yves j[facility] accepts him where his is kb as ordered pt refuses all med including bp med
[2016-09-23] MEDS: traZODone 25 mg Tab PO SCH (22:24)
[2016-09-24] MEDS: Nitroglycerin 2% Ointment Foilpak UD TOP SCH ×4 (01:00→18:02)
[2016-09-24] MEDS: Multiple Vitamins Tab PO SCH (09:50)
[2016-09-24] MEDS: Pantoprazole 40 mg EC Tab PO SCH (09:50)
[2016-09-24] MEDS: Enoxaparin 40 mg Syringe SC SCH (09:50)
[2016-09-24] MEDS: Potassium Chloride 20 mEq ER Tab PO SCH (09:53)
--- NOTE | 2016-09-24 12:51 | PCM.PYCHPN ---
Psychiatric Progress Note - Psychiatric Progress Note Patient seen today, length of contact: 15 min Patient Chief Complaint: No c/c Problems Identified/Issues Discussed: Still agitated on and off. Still uncooperative, evasive. Will add trazodone which helps in dementia to sleep and with agitation Support Medication Change: Yes (add trazodone) Medical Record Reviewed: Yes Mental Status Examination - Cognitive Function Orientation: Place Memory: Impaired Attention: Poor Concentration: Poor Association: Loose Fund of Knowledge: Poor - Mood Mood: Other (irate) - Affect Affect: Blunted (odd) - Speech Speech: Slurred - Formal Thought Process Formal Thought Process: Paranoia (Likely), Loosening of associations - Suicidal Ideation Suicidal Ideation: No - Homicidal Ideation Homicidal Ideation: No Goal/Treatment Plan - Goal/Treatment Plan Progress Toward Problem(s) and Goals/Treatment Plan: 1. Dementia work-up, i.e. TFTs, Vit B12, Folate, RPR, etc. 2. prn haldol, inderal or trazodone 3. Do not use benzos unless he is very agitated, due to risk of confusion and falls 4. Frequent orientation, support and psychoeducation 5. Contact cousin re discharge planning
--- NOTE | 2016-09-24 18:42 | CP.PCM.PN ---
Subjective - Date & Time of Evaluation Date of Evaluation: 09/24/16 Time of Evaluation: 11:40 - Subjective Subjective: clinically same Objective - Vital Signs/Intake and Output Vital Signs (last 24 hours): Temp Pulse Resp BP Pulse Ox 97.4 F L 83 20 147/75 98 09/24/16 15:04 09/24/16 15:04 09/24/16 15:04 09/24/16 15:04 09/24/16 15:04 - Medications Medications: Current Medications Amlodipine Besylate (Norvasc) 10 mg PO DAILY [facility] Last Admin: 09/24/16 09:50 Dose: 10 mg Enoxaparin Sodium (Lovenox) 40 mg SC DAILY [facility] Last Admin: 09/24/16 09:50 Dose: 40 mg Folic Acid (Folic Acid) 1 mg PO DAILY [facility] Last Admin: 09/24/16 09:50 Dose: 1 mg Haloperidol (Haldol) 2 mg PO Q4H PRN PRN Reason: agitation, max 4x/24h Last Admin: 09/22/16 17:50 Dose: 2 mg Haloperidol Lactate (Haldol) 2 mg IM Q4H PRN PRN Reason: severe agitation, max 4x/24h Hydralazine HCl (Apresoline) 50 mg PO TID [facility] Last Admin: 09/24/16 18:01 Dose: 50 mg Hydralazine HCl (Apresoline) 5 mg IVP Q6H PRN PRN Reason: Other Last Admin: 09/23/16 00:44 Dose: 5 mg Hydrochlorothiazide (Hydrodiuril) 25 mg PO DAILY [facility] Last Admin: 09/24/16 09:50 Dose: 25 mg Multivitamins (Hexavitamin) 1 tab PO DAILY [facility] Last Admin: 09/24/16 09:50 Dose: 1 tab Nitroglycerin (Nitro-Bid 2% Oint) 1 ea TOP Q6 PRN PRN Reason: Diastolic blood pressure Last Admin: 09/19/16 11:24 Dose: 1 ea Nitroglycerin (Nitro-Bid 2% Oint) 1 ea TOP Q6 [facility] Last Admin: 09/24/16 18:02 Dose: 1 ea Pantoprazole Sodium (Protonix Ec Tab) 40 mg PO DAILY [facility] Last Admin: 09/24/16 09:50 Dose: 40 mg Potassium Chloride (K-Dur 20 Meq Er Tab) 40 meq PO DAILY [facility] Last Admin: 09/24/16 09:53 Dose: Not Given Thiamine HCl (Vitamin B1 Tab) 100 mg PO DAILY [facility] Last Admin: 09/24/16 09:50 Dose: 100 mg Trazodone HCl (Desyrel) 25 mg PO HS [facility] Last Admin: 09/23/16 22:24 Dose: 25 mg - Labs Labs: 09/22/16 11:36 09/22/16 11:36 PT 12.7 SECONDS (9.7-12.2) H 09/17/16 00:30 INR 1.1 09/17/16 00:30 - Constitutional Appears: Well - Head Exam Head Exam: ATRAUMATIC, NORMAL INSPECTION, NORMOCEPHALIC - Eye Exam Eye Exam: EOMI, Normal appearance, PERRL Pupil Exam: NORMAL ACCOMODATION, PERRL - ENT Exam ENT Exam: Mucous Membranes Moist, Normal Exam - Neck Exam Neck Exam: Full ROM, Normal Inspection. absent: Lymphadenopathy - Respiratory Exam Respiratory Exam: Decreased Breath Sounds - Cardiovascular Exam Cardiovascular Exam: REGULAR RHYTHM, +S1, +S2 - GI/Abdominal Exam GI & Abdominal Exam: Soft, Diminished Bowel Sounds - Rectal Exam Rectal Exam: Deferred
[2016-09-24] MEDS: traZODone 25 mg Tab PO SCH (22:23)
[2016-09-25] MEDS: Nitroglycerin 2% Ointment Foilpak UD TOP SCH ×4 (00:19→17:21)
[2016-09-25] MEDS: Multiple Vitamins Tab PO SCH ×2 (09:42→14:08)
[2016-09-25] MEDS: Potassium Chloride 20 mEq ER Tab PO SCH ×2 (09:42→14:08)
[2016-09-25] MEDS: Pantoprazole 40 mg EC Tab PO SCH ×2 (09:42→14:09)
[2016-09-25] MEDS: Enoxaparin 40 mg Syringe SC SCH (09:43)
--- NOTE | 2016-09-25 19:01 | CP.PCM.PN ---
Subjective - Date & Time of Evaluation Date of Evaluation: 09/25/16 Objective - Vital Signs/Intake and Output Vital Signs (last 24 hours): Temp Pulse Resp BP Pulse Ox 98.1 F 110 H 18 167/84 H 99 09/25/16 07:45 09/25/16 08:44 09/25/16 07:45 09/25/16 07:45 09/25/16 07:45 - Medications Medications: Current Medications Amlodipine Besylate (Norvasc) 10 mg PO DAILY [facility] Last Admin: 09/25/16 14:09 Dose: Not Given Folic Acid (Folic Acid) 1 mg PO DAILY [facility] Last Admin: 09/25/16 14:08 Dose: Not Given Haloperidol (Haldol) 2 mg PO Q4H PRN PRN Reason: agitation, max 4x/24h Last Admin: 09/22/16 17:50 Dose: 2 mg Haloperidol Lactate (Haldol) 2 mg IM Q4H PRN PRN Reason: severe agitation, max 4x/24h Hydralazine HCl (Apresoline) 50 mg PO TID [facility] Last Admin: 09/25/16 17:21 Dose: Not Given Hydralazine HCl (Apresoline) 5 mg IVP Q6H PRN PRN Reason: Other Last Admin: 09/23/16 00:44 Dose: 5 mg Hydrochlorothiazide (Hydrodiuril) 25 mg PO DAILY [facility] Last Admin: 09/25/16 14:08 Dose: Not Given Multivitamins (Hexavitamin) 1 tab PO DAILY [facility] Last Admin: 09/25/16 14:08 Dose: Not Given Nitroglycerin (Nitro-Bid 2% Oint) 1 ea TOP Q6 PRN PRN Reason: Diastolic blood pressure Last Admin: 09/19/16 11:24 Dose: 1 ea Nitroglycerin (Nitro-Bid 2% Oint) 1 ea TOP Q6 [facility] Last Admin: 09/25/16 17:21 Dose: Not Given Pantoprazole Sodium (Protonix Ec Tab) 40 mg PO DAILY [facility] Last Admin: 09/25/16 14:09 Dose: Not Given Potassium Chloride (K-Dur 20 Meq Er Tab) 40 meq PO DAILY [facility] Last Admin: 09/25/16 14:08 Dose: Not Given Thiamine HCl (Vitamin B1 Tab) 100 mg PO DAILY [facility] Last Admin: 09/25/16 14:09 Dose: Not Given Trazodone HCl (Desyrel) 25 mg PO HS [facility] Last Admin: 09/24/16 22:23 Dose: 25 mg - Labs Labs: 09/22/16 11:36 09/22/16 11:36 PT 12.7 SECONDS (9.7-12.2) H 09/17/16 00:30 INR 1.1 09/17/16 00:30
[2016-09-25] MEDS: traZODone 25 mg Tab PO SCH (21:05)
[2016-09-26] MEDS: Nitroglycerin 2% Ointment Foilpak UD TOP SCH ×4 (00:10→18:06)
[2016-09-26 01:35] LABS: BASO # 0.1 K/uL (0.0-0.2); EOS # 0.1 K/uL (0.0-0.7); EOS % 1.6 % (0.0-4.0); HEMATOCRIT 36.8 % (35.0-51.0); LYMPH # 1.5 K/uL (1.0-4.3); MEAN CELL VOLUME 88.2 fL (80.0-94.0); MEAN CORPUSCULAR HEMOGLOBIN 29.4 pg (27.0-31.0); MEAN CORPUSCULAR HGB CONC 33.3 g/dL (33.0-37.0); MEAN PLATELET VOLUME 8.9 fL (7.2-11.7); MONO # 0.8 K/uL (0.0-0.8); MONO % 10.7 % (0.0-10.0); RED CELL DISTRIBUTION WIDTH 13.8 % (11.5-14.5); WHITE BLOOD COUNT 7.7 K/uL (4.8-10.8)
[2016-09-26 01:45] LABS: CHLORIDE 97 mmol/L (98-107); SODIUM 137 mmol/L (132-148)
[2016-09-26 01:46] LABS: POTASSIUM 3.7 mmol/L (3.6-5.2)
--- NOTE | 2016-09-26 01:46 | PCM.RRTMUL ---
WATER TESTER Nurses Assessment - Situation WATER TESTER Responder Arrival Time:: 01:05 Location:: [address] [place] [address] Room Number:: 665B WATER TESTER Reason for Call: Change in Mental Status (altered mental status- pt unresponsive to verbal stimuli) WATER TESTER Called By: RN - IV IV Inserted during WATER TESTER?: No - Respiratory Oxygen Delivery Method:: Nasal Cannula Received Nebulizer Treatments:: No Was the Patient Ventilated with Bag/Mask 100% O2?: No Secretions Suctioned?: No Was the Patient Intubated?: No Was the Patient Placed on a Ventilator?: No - Diagnostic Test Ordered EKG:: Yes CT Scan:: Yes (CT head) - Stat Labs Ordered WATER TESTER Stat Labs Ordered:: CBC, BMP CPR started during WATER TESTER?: No - Vital Signs Blood Pressure:: 119/48 Pulse Rate:: 110 Respiratory Rate:: 14 Oxygen Saturation:: 100 - Sun Coma Scale Coma Scale Eye Opening:: To verbal stimuli Coma Scale Motor:: Movement to pain stimulus Coma Scale Verbal:: Confused/able to answer Coma Scale Total:: 12 - Time WATER TESTER Ended Time WATER TESTER Ended:: 01:20 - Recommendations 5) WATER TESTER Level of Care Recommendations: Remain in current setting I.Reason for WATER TESTER - A) Acute Change in Patient: (Select all that apply): Acute change in mental status (Pt responding appropriately to CP 1/2 half hour earlier) Subjective: HOUSE RESIDENT NOTE WATER TESTER called at 1:12 AM WATER TESTER called for AMS. Patient was standing at door of room talking to CP half hour before and answering appropriately to questions. When CP came back, pt was in bed now no longer responding to anything but deep painful stimuli, so WATER TESTER was called. Pt found by this resident oriented to self at this time but not to place, time or context. He was responsive to painful stimuli, and was answering questions inappropriately. He was also not following instructions. Blood glucose : 150 From EMR, pt was found on the street and AAOx3 on 09/16/16. CT head performed at admission showed "diffuse atrophy, small vessel disease," but no acute findings. UDS, ammonia level normal at that time. Pt with hx of alcohol abuse, so FA/thiamine/MV started on admission. EMR shows pt given scheduled Haldol at 21:30. - B) Neurological Status (Select all that apply): Alert, Follows Commands, Confused, Lethargic. absent: Oriented, Weakness - C) Respiratory Oxygen Delivery Method: Nasal Cannula @L/min Oxygen Flow Rate: 2 - Constitutional Appears: No Acute Distress, Confused - Head Head Exam: ATRAUMATIC, NORMOCEPHALIC - Eyes Eye Exam: EOMI - Respiratory Exam Respiratory Exam: Clear to Ausculation Bilateral, NORMAL BREATHING PATTERN - Cardiovascular Exam Cardiovascular Exam: Tachycardia, +S1, +S2 - GI/Abdominal Exam GI & Abdominal Exam: Soft. absent: Tenderness - Neurological Exam Neurological Exam: Altered, Awake. absent: Oriented x3 - Extremities Exam Extremities Exam: Normal Inspection. absent: Joint Swelling, Pedal Edema Additional comments: B at time of rapid Plan - A. End of WATER TESTER Vital Signs: O2 Sat by Pulse Oximetry: 100 Finger Stick Blood Glucose: 150 - B. Assessment of Findings&Treatment Plan Plan: AMS f/u STAT CBC, CMP, EKG, CT HEAD
[2016-09-26 01:48] LABS: ALB/GLOB RATIO 1.7 (1.0-2.1); ALKALINE PHOSPHATASE 117 U/L (38-126); ALT/SGPT 21 U/L (21-72); AST/SGOT 31 U/L (17-59); BILIRUBIN,TOTAL 0.6 mg/dL (0.2-1.3); BLOOD UREA NITROGEN 32 mg/dL (9-20); CARBON DIOXIDE 26 mmol/L (22-30); GFR AFRICAN-AMERICAN > 60; GLUCOSE,RANDOM 149 mg/dL (75-110); TOTAL PROTEIN 7.9 g/dL (6.3-8.3)
[2016-09-26 01:49] LABS: CALCIUM 11.1 mg/dl (8.6-10.4)
--- NOTE | 2016-09-26 02:02 | CT ---
EXAM: CT Head Without Intravenous Contrast CLINICAL HISTORY: 70 years old, male; Pain and signs and symptoms; Other: Unrespond; Patient HX: 09-16-16; Additional info: AMS TECHNIQUE: Axial computed tomography images of the head/brain without intravenous contrast. This CT exam was performed using one or more of the following dose reduction techniques: automated exposure control, adjustment of the mA and/or kV according to patient size, and/or use of iterative reconstruction technique. COMPARISON: CT - HEAD W/O CONTRAST 09/17/2016 12:12:06 AM FINDINGS: Brain: There is mild prominence of ventricles and sulci, compatible with mild atrophy. There is moderate diminished density of the white matter bilaterally, consistent with moderate microangiopathy. There is no evidence of intracranial hemorrhage. No evidence of acute territorial infarction. No edema. Ventricles: See above. Bones/joints: Unremarkable. No acute fracture. Soft tissues: Unremarkable. Sinuses: Unremarkable as visualized. No acute sinusitis. Mastoid air cells: Unremarkable as visualized. No mastoid effusion. IMPRESSION: 1. No evidence for acute intracranial abnormality or displaced calvarial fracture. 2. Additional incidental and/or chronic findings as described.
[2016-09-26 07:12] LABS: BASO # 0.1 K/uL (0.0-0.2); BASO % 0.8 % (0.0-2.0); EOS % 0.4 % (0.0-4.0); HEMATOCRIT 36.1 % (35.0-51.0); LYMPH # 1.2 K/uL (1.0-4.3); LYMPH % 16.1 % (20.0-40.0); MEAN CELL VOLUME 88.3 fL (80.0-94.0); MEAN CORPUSCULAR HEMOGLOBIN 29.6 pg (27.0-31.0); MEAN CORPUSCULAR HGB CONC 33.5 g/dL (33.0-37.0); MEAN PLATELET VOLUME 9.3 fL (7.2-11.7); MONO # 0.7 K/uL (0.0-0.8); MONO % 9.1 % (0.0-10.0); RED CELL DISTRIBUTION WIDTH 14.2 % (11.5-14.5); WHITE BLOOD COUNT 7.2 K/uL (4.8-10.8)
--- NOTE | 2016-09-26 07:32 | PN ---
DATE: 09/26/2016 NEUROLOGICAL PROBLEM: Change in mental status and toxic versus metabolic encephalopathy. PHYSICAL EXAMINATION: VITAL SIGNS: Blood pressure 166/82, mean arterial pressure of 110, respiratory rate 18, temperature afebrile with a pulse rate 97 regular. The patient had an episode of confusion and combativeness last night; been treated with Haldol. Following this, the patient became cold, clammy and unresponsive for a brief period of time. Emergency CAT scan was done which does not reveal any acute pathology noted. NEUROLOGIC: At present, the patient is arousable on calling his name. Still he is disoriented to place. However, immediately he can recall the year and name of the president. He states all extremities against gravity as well as he follows commands. The above episode, probably toxic encephalopathy from the medication. However, from neurological point of view nonconvulsive seizures should be ruled out. RECOMMENDATIONS: 1. Continue fall precautions. 2. May be beneficial on 1:1. If needed, the patient needs a psychiatric consultation. 3. I would like to do an electroencephalogram to rule out any electrographic abnormal activities. 4. The patient will be followed closely with you. Issa Hardwick MD cc: [id number] TT: 09/26/2016 07:31:37 Confirmation # [id number] Dictation # [id number] bailey DIAZ
[2016-09-26 07:34] LABS: CHLORIDE 99 mmol/L (98-107); POTASSIUM 4.4 mmol/L (3.6-5.2); SODIUM 136 mmol/L (132-148)
[2016-09-26 07:36] LABS: AST/SGOT 28 U/L (17-59); BILIRUBIN,TOTAL 0.7 mg/dL (0.2-1.3); CARBON DIOXIDE 26 mmol/L (22-30); GFR AFRICAN-AMERICAN > 60
[2016-09-26 07:37] LABS: ALB/GLOB RATIO 1.4 (1.0-2.1); ALKALINE PHOSPHATASE 94 U/L (38-126); ALT/SGPT 16 U/L (21-72); BLOOD UREA NITROGEN 31 mg/dL (9-20); CALCIUM 10.1 mg/dl (8.6-10.4); GLUCOSE,RANDOM 95 mg/dL (75-110)
[2016-09-26] MEDS: Potassium Chloride 20 mEq ER Tab PO SCH (11:09)
[2016-09-26] MEDS: Multiple Vitamins Tab PO SCH (11:09)
[2016-09-26] MEDS: Pantoprazole 40 mg EC Tab PO SCH (11:10)
--- NOTE | 2016-09-26 14:59 | CP.PCM.PN ---
Subjective - Date & Time of Evaluation Date of Evaluation: 09/26/16 Time of Evaluation: 11:40 - Subjective Subjective: clinically same Objective - Vital Signs/Intake and Output Vital Signs (last 24 hours): Temp Pulse Resp BP Pulse Ox 97.8 F 92 H 20 180/80 H 96 09/26/16 08:22 09/26/16 08:22 09/26/16 08:22 09/26/16 08:22 09/26/16 08:22 Intake and Output: 09/26/16 09/26/16 06:59 18:59 Intake Total 10 Output Total 800 Balance -790 - Medications Medications: Current Medications Amlodipine Besylate (Norvasc) 10 mg PO DAILY [facility] Last Admin: 09/26/16 11:10 Dose: Not Given Folic Acid (Folic Acid) 1 mg PO DAILY [facility] Last Admin: 09/26/16 11:09 Dose: Not Given Haloperidol (Haldol) 2 mg PO Q4H PRN PRN Reason: agitation, max 4x/24h Last Admin: 09/22/16 17:50 Dose: 2 mg Haloperidol Lactate (Haldol) 2 mg IM Q4H PRN PRN Reason: severe agitation, max 4x/24h Last Admin: 09/25/16 21:27 Dose: 2 mg Hydralazine HCl (Apresoline) 50 mg PO TID [facility] Last Admin: 09/26/16 14:14 Dose: Not Given Hydralazine HCl (Apresoline) 5 mg IVP Q6H PRN PRN Reason: Other Last Admin: 09/23/16 00:44 Dose: 5 mg Hydrochlorothiazide (Hydrodiuril) 25 mg PO DAILY [facility] Last Admin: 09/26/16 11:09 Dose: Not Given Multivitamins (Hexavitamin) 1 tab PO DAILY [facility] Last Admin: 09/26/16 11:09 Dose: Not Given Nitroglycerin (Nitro-Bid 2% Oint) 1 ea TOP Q6 PRN PRN Reason: Diastolic blood pressure Last Admin: 09/19/16 11:24 Dose: 1 ea Nitroglycerin (Nitro-Bid 2% Oint) 1 ea TOP Q6 [facility] Last Admin: 09/26/16 14:14 Dose: 1 ea Pantoprazole Sodium (Protonix Ec Tab) 40 mg PO DAILY [facility] Last Admin: 09/26/16 11:10 Dose: Not Given Potassium Chloride (K-Dur 20 Meq Er Tab) 40 meq PO DAILY [facility] Last Admin: 09/26/16 11:09 Dose: Not Given Thiamine HCl (Vitamin B1 Tab) 100 mg PO DAILY [facility] Last Admin: 09/26/16 11:10 Dose: Not Given Trazodone HCl (Desyrel) 25 mg PO HS [facility] Last Admin: 09/25/16 21:05 Dose: Not Given - Labs Labs: 09/26/16 07:04 09/26/16 07:04 PT 12.7 SECONDS (9.7-12.2) H 09/17/16 00:30 INR 1.1 09/17/16 00:30 - Constitutional Appears: Well - Head Exam Head Exam: ATRAUMATIC, NORMAL INSPECTION, NORMOCEPHALIC - Eye Exam Eye Exam: EOMI, Normal appearance, PERRL Pupil Exam: NORMAL ACCOMODATION, PERRL - ENT Exam ENT Exam: Mucous Membranes Moist, Normal Exam - Neck Exam Neck Exam: Full ROM, Normal Inspection. absent: Lymphadenopathy - Respiratory Exam Respiratory Exam: Decreased Breath Sounds - Cardiovascular Exam Cardiovascular Exam: REGULAR RHYTHM, +S1, +S2 - GI/Abdominal Exam GI & Abdominal Exam: Soft, Diminished Bowel Sounds - Rectal Exam Rectal Exam: Deferred
--- NOTE | 2016-09-26 15:18 | PCM.PYCHPN ---
Psychiatric Progress Note - Psychiatric Progress Note Patient seen today, length of contact: 15 min Patient Chief Complaint: I am mayo Problems Identified/Issues Discussed: Patient seen and evaluated, chart reviewed and discussed with the nurse. Patient remained demented and delusional. Patient appeared disorganized and internally preoccupied due to dementia. as per the staff patient was very agitated and aggressive last night and was pacing back and forth in the hallways. However today he appears more alert but he remained disoriented to time and place. When asked, 'where is he now', he said, 'in [place] at [facility]'. when asked, 'Who the president of [facility]?' he said ' Mr. Jacinto'. However he denies any suicidal ideation or homicidal ideation. He is taking medication and denies any side effects. Supportive therapy and psychoeducation were given. Medication Change: Yes (add trazodone) Medical Record Reviewed: Yes Mental Status Examination - Cognitive Function Orientation: Person Memory: Impaired Attention: Poor Concentration: Poor Association: Loose Fund of Knowledge: Poor - Mood Mood: Other (irate) - Affect Affect: Blunted (odd) - Speech Speech: Slurred - Formal Thought Process Formal Thought Process: Paranoia (Likely), Loosening of associations - Suicidal Ideation Suicidal Ideation: No - Homicidal Ideation Homicidal Ideation: No Goal/Treatment Plan - Goal/Treatment Plan Need for Continued Stay: Discharge may exacerbated symptoms, Severe functional impairment Progress Toward Problem(s) and Goals/Treatment Plan: Dementia w/o behavioal disturbances 1. Dementia work-up, i.e. TFTs, Vit B12, Folate, RPR, etc. 2. prn haldol, inderal or trazodone 3. Do not use benzos unless he is very agitated, due to risk of confusion and falls 4. Frequent orientation, support and psychoeducation 5. Contact cousin re discharge planning - Smoking Cessation Smoking Cessation Initiated: No
[2016-09-27] MEDS: traZODone 25 mg Tab PO SCH ×2 (00:17→21:47)
[2016-09-27] MEDS: Nitroglycerin 2% Ointment Foilpak UD TOP SCH ×4 (00:18→17:33)
[2016-09-27] MEDS: Pantoprazole 40 mg EC Tab PO SCH (10:10)
[2016-09-27] MEDS: Multiple Vitamins Tab PO SCH (10:10)
[2016-09-27] MEDS: Potassium Chloride 20 mEq ER Tab PO SCH (10:10)
--- NOTE | 2016-09-27 13:48 | CP.PCM.PN ---
Subjective - Date & Time of Evaluation Date of Evaluation: 09/27/16 Time of Evaluation: 11:20 - Subjective Subjective: clinically same Objective - Vital Signs/Intake and Output Vital Signs (last 24 hours): Temp Pulse Resp BP Pulse Ox 9 F L 67 20 166/74 H 100 09/27/16 07:00 09/27/16 11:21 09/27/16 07:00 09/27/16 07:00 09/27/16 07:00 Intake and Output: 09/27/16 09/27/16 06:59 18:59 Intake Total 120 Output Total 800 Balance -680 - Medications Medications: Current Medications Amlodipine Besylate (Norvasc) 10 mg PO DAILY [facility] Last Admin: 09/27/16 10:10 Dose: 10 mg Folic Acid (Folic Acid) 1 mg PO DAILY [facility] Last Admin: 09/27/16 10:10 Dose: 1 mg Haloperidol (Haldol) 2 mg PO Q4H PRN PRN Reason: agitation, max 4x/24h Last Admin: 09/22/16 17:50 Dose: 2 mg Haloperidol Lactate (Haldol) 2 mg IM Q4H PRN PRN Reason: severe agitation, max 4x/24h Last Admin: 09/25/16 21:27 Dose: 2 mg Hydralazine HCl (Apresoline) 50 mg PO TID [facility] Last Admin: 09/27/16 10:10 Dose: 50 mg Hydralazine HCl (Apresoline) 5 mg IVP Q6H PRN PRN Reason: Other Last Admin: 09/23/16 00:44 Dose: 5 mg Hydrochlorothiazide (Hydrodiuril) 25 mg PO DAILY [facility] Last Admin: 09/27/16 10:10 Dose: 25 mg Multivitamins (Hexavitamin) 1 tab PO DAILY [facility] Last Admin: 09/27/16 10:10 Dose: 1 tab Nitroglycerin (Nitro-Bid 2% Oint) 1 ea TOP Q6 PRN PRN Reason: Diastolic blood pressure Last Admin: 09/19/16 11:24 Dose: 1 ea Nitroglycerin (Nitro-Bid 2% Oint) 1 ea TOP Q6 [facility] Last Admin: 09/27/16 05:35 Dose: 1 ea Pantoprazole Sodium (Protonix Ec Tab) 40 mg PO DAILY [facility] Last Admin: 09/27/16 10:10 Dose: 40 mg Potassium Chloride (K-Dur 20 Meq Er Tab) 40 meq PO DAILY [facility] Last Admin: 09/26/16 11:09 Dose: Not Given Thiamine HCl (Vitamin B1 Tab) 100 mg PO DAILY [facility] Last Admin: 09/27/16 10:10 Dose: 100 mg Trazodone HCl (Desyrel) 25 mg PO HS [facility] Last Admin: 09/27/16 00:17 Dose: 25 mg - Labs Labs: 09/26/16 07:04 09/26/16 07:04 PT 12.7 SECONDS (9.7-12.2) H 09/17/16 00:30 INR 1.1 09/17/16 00:30 - Constitutional Appears: Well - Head Exam Head Exam: ATRAUMATIC, NORMAL INSPECTION, NORMOCEPHALIC - Eye Exam Eye Exam: EOMI, Normal appearance, PERRL Pupil Exam: NORMAL ACCOMODATION, PERRL - ENT Exam ENT Exam: Mucous Membranes Moist, Normal Exam - Neck Exam Neck Exam: Full ROM, Normal Inspection. absent: Lymphadenopathy - Respiratory Exam Respiratory Exam: Decreased Breath Sounds - Cardiovascular Exam Cardiovascular Exam: REGULAR RHYTHM, +S1, +S2 - GI/Abdominal Exam GI & Abdominal Exam: Soft, Diminished Bowel Sounds - Rectal Exam Rectal Exam: Deferred
[2016-09-28] MEDS: Nitroglycerin 2% Ointment Foilpak UD TOP SCH ×4 (00:06→17:07)
[2016-09-28] MEDS: Pantoprazole 40 mg EC Tab PO SCH (08:59)
[2016-09-28] MEDS: Multiple Vitamins Tab PO SCH (08:59)
[2016-09-28] MEDS: Potassium Chloride 20 mEq ER Tab PO SCH (08:59)
--- NOTE | 2016-09-28 13:24 | CP.PCM.PN ---
Subjective - Date & Time of Evaluation Date of Evaluation: 09/28/16 Time of Evaluation: 12:00 - Subjective Subjective: clinically same Objective - Vital Signs/Intake and Output Vital Signs (last 24 hours): Temp Pulse Resp BP Pulse Ox 97.4 F L 84 20 167/74 H 100 09/28/16 08:16 09/28/16 11:27 09/28/16 08:16 09/28/16 11:27 09/28/16 08:16 Intake and Output: 09/28/16 09/28/16 06:59 18:59 Intake Total 450 Output Total 900 Balance -450 - Medications Medications: Current Medications Amlodipine Besylate (Norvasc) 10 mg PO DAILY [facility] Last Admin: 09/28/16 08:59 Dose: 10 mg Folic Acid (Folic Acid) 1 mg PO DAILY [facility] Last Admin: 09/28/16 08:59 Dose: 1 mg Haloperidol (Haldol) 2 mg PO Q4H PRN PRN Reason: agitation, max 4x/24h Last Admin: 09/22/16 17:50 Dose: 2 mg Haloperidol Lactate (Haldol) 2 mg IM Q4H PRN PRN Reason: severe agitation, max 4x/24h Last Admin: 09/25/16 21:27 Dose: 2 mg Hydralazine HCl (Apresoline) 50 mg PO TID [facility] Last Admin: 09/28/16 08:59 Dose: 50 mg Hydralazine HCl (Apresoline) 5 mg IVP Q6H PRN PRN Reason: Other Last Admin: 09/28/16 00:05 Dose: 5 mg Hydrochlorothiazide (Hydrodiuril) 25 mg PO DAILY [facility] Last Admin: 09/28/16 08:59 Dose: 25 mg Multivitamins (Hexavitamin) 1 tab PO DAILY [facility] Last Admin: 09/28/16 08:59 Dose: 1 tab Nitroglycerin (Nitro-Bid 2% Oint) 1 ea TOP Q6 PRN PRN Reason: Diastolic blood pressure Last Admin: 09/19/16 11:24 Dose: 1 ea Nitroglycerin (Nitro-Bid 2% Oint) 1 ea TOP Q6 [facility] Last Admin: 09/28/16 11:28 Dose: 1 ea Pantoprazole Sodium (Protonix Ec Tab) 40 mg PO DAILY [facility] Last Admin: 05/28/17 08:59 Dose: 40 mg Potassium Chloride (K-Dur 20 Meq Er Tab) 40 meq PO DAILY [facility] Last Admin: 09/28/16 08:59 Dose: Not Given Thiamine HCl (Vitamin B1 Tab) 100 mg PO DAILY [facility] Last Admin: 09/28/16 08:59 Dose: 100 mg Trazodone HCl (Desyrel) 25 mg PO HS [facility] Last Admin: 09/27/16 21:47 Dose: 25 mg - Labs Labs: 09/26/16 07:04 09/26/16 07:04 PT 12.7 SECONDS (9.7-12.2) H 09/17/16 00:30 INR 1.1 09/17/16 00:30 - Constitutional Appears: Well - Head Exam Head Exam: ATRAUMATIC, NORMAL INSPECTION, NORMOCEPHALIC - Eye Exam Eye Exam: EOMI, Normal appearance, PERRL Pupil Exam: NORMAL ACCOMODATION, PERRL - ENT Exam ENT Exam: Mucous Membranes Moist, Normal Exam - Neck Exam Neck Exam: Full ROM, Normal Inspection. absent: Lymphadenopathy - Respiratory Exam Respiratory Exam: Decreased Breath Sounds - Cardiovascular Exam Cardiovascular Exam: REGULAR RHYTHM, +S1, +S2 - GI/Abdominal Exam GI & Abdominal Exam: Soft, Diminished Bowel Sounds - Rectal Exam Rectal Exam: Deferred
[2016-09-28] MEDS: traZODone 25 mg Tab PO SCH (22:50)
[2016-09-29] MEDS: Nitroglycerin 2% Ointment Foilpak UD TOP SCH ×4 (00:44→19:06)
[2016-09-29] MEDS: Pantoprazole 40 mg EC Tab PO SCH (09:49)
[2016-09-29] MEDS: Potassium Chloride 20 mEq ER Tab PO SCH (09:49)
[2016-09-29] MEDS: Multiple Vitamins Tab PO SCH (09:49)
--- NOTE | 2016-09-29 18:17 | CP.PCM.PN ---
Subjective - Date & Time of Evaluation Date of Evaluation: 09/29/16 Time of Evaluation: 11:20 - Subjective Subjective: clinically same Objective - Vital Signs/Intake and Output Vital Signs (last 24 hours): Temp Pulse Resp BP Pulse Ox 98.1 F 92 H 18 157/73 H 98 09/29/16 15:26 09/29/16 15:26 09/29/16 15:26 09/29/16 15:26 09/29/16 15:26 Intake and Output: 09/29/16 09/29/16 06:59 18:59 Intake Total 550 Output Total 600 Balance -50 - Medications Medications: Current Medications Amlodipine Besylate (Norvasc) 10 mg PO DAILY [facility] Last Admin: 09/29/16 09:49 Dose: 10 mg Folic Acid (Folic Acid) 1 mg PO DAILY [facility] Last Admin: 09/29/16 09:49 Dose: 1 mg Haloperidol (Haldol) 2 mg PO Q4H PRN PRN Reason: agitation, max 4x/24h Last Admin: 09/22/16 17:50 Dose: 2 mg Haloperidol Lactate (Haldol) 2 mg IM Q4H PRN PRN Reason: severe agitation, max 4x/24h Last Admin: 09/25/16 21:27 Dose: 2 mg Hydralazine HCl (Apresoline) 50 mg PO TID [facility] Last Admin: 09/29/16 13:27 Dose: 50 mg Hydralazine HCl (Apresoline) 5 mg IVP Q6H PRN PRN Reason: Other Last Admin: 09/28/16 00:05 Dose: 5 mg Hydrochlorothiazide (Hydrodiuril) 25 mg PO DAILY [facility] Last Admin: 09/29/16 09:49 Dose: 25 mg Multivitamins (Hexavitamin) 1 tab PO DAILY [facility] Last Admin: 09/29/16 09:49 Dose: 1 tab Nitroglycerin (Nitro-Bid 2% Oint) 1 ea TOP Q6 PRN PRN Reason: Diastolic blood pressure Last Admin: 09/19/16 11:24 Dose: 1 ea Nitroglycerin (Nitro-Bid 2% Oint) 1 ea TOP Q6 [facility] Last Admin: 09/29/16 13:28 Dose: 1 ea Pantoprazole Sodium (Protonix Ec Tab) 40 mg PO DAILY [facility] Last Admin: 05/29/17 09:49 Dose: 40 mg Potassium Chloride (K-Dur 20 Meq Er Tab) 40 meq PO DAILY [facility] Last Admin: 09/29/16 09:49 Dose: 40 meq Thiamine HCl (Vitamin B1 Tab) 100 mg PO DAILY [facility] Last Admin: 09/29/16 09:49 Dose: 100 mg Trazodone HCl (Desyrel) 25 mg PO HS [facility] Last Admin: 09/28/16 22:50 Dose: Not Given - Labs Labs: 09/26/16 07:04 09/26/16 07:04 PT 12.7 SECONDS (9.7-12.2) H 09/17/16 00:30 INR 1.1 09/17/16 00:30 - Constitutional Appears: Well - Head Exam Head Exam: ATRAUMATIC, NORMAL INSPECTION, NORMOCEPHALIC - Eye Exam Eye Exam: EOMI, Normal appearance, PERRL Pupil Exam: NORMAL ACCOMODATION, PERRL - ENT Exam ENT Exam: Mucous Membranes Moist, Normal Exam - Neck Exam Neck Exam: Full ROM, Normal Inspection. absent: Lymphadenopathy - Respiratory Exam Respiratory Exam: Decreased Breath Sounds - Cardiovascular Exam Cardiovascular Exam: REGULAR RHYTHM, +S1, +S2 - GI/Abdominal Exam GI & Abdominal Exam: Soft, Diminished Bowel Sounds - Rectal Exam Rectal Exam: Deferred
--- NOTE | 2016-09-29 20:32 | EEG ---
DATE: 09/26/2016 This is a 16-channel electroencephalogram of awake and drowsy adult. During the study, photic stimulation was performed. Hyperventilation was not performed. The resting electroencephalogram consists of 20-30 microvolt diffuse theta activity seen at parietal and occipital leads. Anteriorly fast activity superimposed with 2-3 Hz delta activity seen. Intermittently alpha activities seen at the parietal and occipital leads. The movement artifact contaminated the background rhythm, mostly on his left frontotemporal leads. The photic stimulation did not evoke driving response noted at 2-20 Hz. IMPRESSION: This is a normal electroencephalogram of awake and drowsy adult. During the study, neither electroencephalographic paroxysmal activities nor focal slowing noted. Issa Hardwick MD cc: [id number] TT: 09/29/2016 20:31:49 Confirmation # [id number] Dictation # [id number] bailey DIAZ
[2016-09-29] MEDS: traZODone 25 mg Tab PO SCH (22:01)
[2016-09-30] MEDS: Nitroglycerin 2% Ointment Foilpak UD TOP SCH ×4 (00:10→19:15)
[2016-09-30] MEDS: Potassium Chloride 20 mEq ER Tab PO SCH (09:34)
[2016-09-30] MEDS: Multiple Vitamins Tab PO SCH (09:34)
[2016-09-30] MEDS: Pantoprazole 40 mg EC Tab PO SCH (09:34)
--- NOTE | 2016-09-30 11:23 | EEG ---
DATE: 09/18/2016 This is a 16-channel electroencephalogram of awake and drowsy adult. During the study, photic stimul ation was performed. Hyperventilation was not performed. The resting electroencephalogram consisted of 8-12 Hz moderate voltage alpha activity seen at parieta l and occipital leads. Anteriorly fast activity superimposed with 2-3 Hz delta activity seen at fron neymar and central leads. Intermittent movement artifact contaminated the background rhythm. The photi c stimulation did not evoke driving response noted at 2-20 Hz. IMPRESSION: This is a normal electroencephalogram of awake and drowsy adult. During the study, neit her electroencephalographic paroxysmal activities nor focal slowing noted. Issa Hardwick MD cc: [id number] TT: 09/29/2016 21:00:23 Confirmation # [id number] Dictation # [id number] bailey
--- NOTE | 2016-09-30 12:45 | CARD ---
APPROVED REPORT EKG Measurement Heart [id number] <Conclusion> Suspect arm lead reversal, interpretation assumes no reversal Sinus rhythm with occasional premature ventricular complexes Right atrial enlargement Left posterior fascicular block Left ventricular hypertrophy with QRS widening Nonspecific T wave abnormality Abnormal ECG
[2016-09-30 14:28] LABS: BASO # 0.1 K/uL (0.0-0.2); EOS # 0.3 K/uL (0.0-0.7); EOS % 4.9 % (0.0-4.0); HEMATOCRIT 37.5 % (35.0-51.0); LYMPH # 1.2 K/uL (1.0-4.3); MEAN CELL VOLUME 88.6 fL (80.0-94.0); MEAN CORPUSCULAR HEMOGLOBIN 29.4 pg (27.0-31.0); MEAN CORPUSCULAR HGB CONC 33.2 g/dL (33.0-37.0); MEAN PLATELET VOLUME 9.5 fL (7.2-11.7); MONO # 0.6 K/uL (0.0-0.8); MONO % 9.8 % (0.0-10.0); WHITE BLOOD COUNT 6.4 K/uL (4.8-10.8)
--- NOTE | 2016-09-30 15:45 | CP.PCM.PN ---
Subjective - Date & Time of Evaluation Date of Evaluation: 09/30/16 Time of Evaluation: 11:00 - Subjective Subjective: clinically same Objective - Vital Signs/Intake and Output Vital Signs (last 24 hours): Temp Pulse Resp BP Pulse Ox 97.8 F 90 20 169/72 H 98 09/30/16 08:19 09/30/16 08:19 09/30/16 08:19 09/30/16 08:19 09/30/16 08:19 - Medications Medications: Current Medications Amlodipine Besylate (Norvasc) 10 mg PO DAILY [facility] Last Admin: 09/30/16 09:33 Dose: 10 mg Folic Acid (Folic Acid) 1 mg PO DAILY [facility] Last Admin: 09/30/16 09:34 Dose: 1 mg Haloperidol (Haldol) 2 mg PO Q4H PRN PRN Reason: agitation, max 4x/24h Last Admin: 09/22/16 17:50 Dose: 2 mg Haloperidol Lactate (Haldol) 2 mg IM Q4H PRN PRN Reason: severe agitation, max 4x/24h Last Admin: 09/25/16 21:27 Dose: 2 mg Hydralazine HCl (Apresoline) 50 mg PO TID [facility] Last Admin: 09/30/16 13:17 Dose: 50 mg Hydralazine HCl (Apresoline) 5 mg IVP Q6H PRN PRN Reason: Other Last Admin: 09/28/16 00:05 Dose: 5 mg Hydrochlorothiazide (Hydrodiuril) 25 mg PO DAILY [facility] Last Admin: 09/30/16 09:33 Dose: 25 mg Multivitamins (Hexavitamin) 1 tab PO DAILY [facility] Last Admin: 09/30/16 09:34 Dose: 1 tab Nitroglycerin (Nitro-Bid 2% Oint) 1 ea TOP Q6 PRN PRN Reason: Diastolic blood pressure Last Admin: 09/19/16 11:24 Dose: 1 ea Nitroglycerin (Nitro-Bid 2% Oint) 1 ea TOP Q6 [facility] Last Admin: 09/30/16 13:13 Dose: Not Given Pantoprazole Sodium (Protonix Ec Tab) 40 mg PO DAILY [facility] Last Admin: 09/30/16 09:34 Dose: 40 mg Potassium Chloride (K-Dur 20 Meq Er Tab) 40 meq PO DAILY [facility] Last Admin: 09/30/16 09:34 Dose: Not Given Thiamine HCl (Vitamin B1 Tab) 100 mg PO DAILY [facility] Last Admin: 09/30/16 09:34 Dose: 100 mg Trazodone HCl (Desyrel) 25 mg PO HS [facility] Last Admin: 09/29/16 22:01 Dose: 25 mg - Labs Labs: 09/30/16 14:20 09/26/16 07:04 PT 12.7 SECONDS (9.7-12.2) H 09/17/16 00:30 INR 1.1 09/17/16 00:30 - Constitutional Appears: Well - Head Exam Head Exam: ATRAUMATIC, NORMAL INSPECTION, NORMOCEPHALIC - Eye Exam Eye Exam: EOMI, Normal appearance, PERRL Pupil Exam: NORMAL ACCOMODATION, PERRL - ENT Exam ENT Exam: Mucous Membranes Moist, Normal Exam - Neck Exam Neck Exam: Full ROM, Normal Inspection. absent: Lymphadenopathy - Respiratory Exam Respiratory Exam: Decreased Breath Sounds - Cardiovascular Exam Cardiovascular Exam: REGULAR RHYTHM, +S1, +S2 - GI/Abdominal Exam GI & Abdominal Exam: Soft, Diminished Bowel Sounds - Rectal Exam Rectal Exam: Deferred
[2016-09-30] MEDS: traZODone 25 mg Tab PO SCH (21:32)
[2016-10-01] MEDS: Nitroglycerin 2% Ointment Foilpak UD TOP SCH ×4 (00:16→18:21)
[2016-10-01] MEDS: Multiple Vitamins Tab PO SCH (09:25)
[2016-10-01] MEDS: Pantoprazole 40 mg EC Tab PO SCH (09:25)
[2016-10-01] MEDS: Potassium Chloride 20 mEq ER Tab PO SCH (09:25)
--- NOTE | 2016-10-01 11:40 | CP.PCM.PN ---
Subjective - Date & Time of Evaluation Date of Evaluation: 10/01/16 Time of Evaluation: 10:00 - Subjective Subjective: clinically same Objective - Vital Signs/Intake and Output Vital Signs (last 24 hours): Temp Pulse Resp BP Pulse Ox 98.1 F 78 22 171/75 H 99 10/01/16 07:10 10/01/16 07:10 10/01/16 07:10 10/01/16 07:10 10/01/16 07:10 Intake and Output: 10/01/16 10/01/16 06:59 18:59 Intake Total 0 0 Balance 0 0 - Medications Medications: Current Medications Amlodipine Besylate (Norvasc) 10 mg PO DAILY [facility] Last Admin: 10/01/16 09:25 Dose: 10 mg Folic Acid (Folic Acid) 1 mg PO DAILY [facility] Last Admin: 10/01/16 09:25 Dose: 1 mg Haloperidol (Haldol) 2 mg PO Q4H PRN PRN Reason: agitation, max 4x/24h Last Admin: 09/22/16 17:50 Dose: 2 mg Haloperidol Lactate (Haldol) 2 mg IM Q4H PRN PRN Reason: severe agitation, max 4x/24h Last Admin: 09/25/16 21:27 Dose: 2 mg Hydralazine HCl (Apresoline) 50 mg PO TID [facility] Last Admin: 10/01/16 09:25 Dose: 50 mg Hydralazine HCl (Apresoline) 5 mg IVP Q6H PRN PRN Reason: Other Last Admin: 09/28/16 00:05 Dose: 5 mg Hydrochlorothiazide (Hydrodiuril) 25 mg PO DAILY [facility] Last Admin: 10/01/16 09:25 Dose: 25 mg Multivitamins (Hexavitamin) 1 tab PO DAILY [facility] Last Admin: 10/01/16 09:25 Dose: 1 tab Nitroglycerin (Nitro-Bid 2% Oint) 1 ea TOP Q6 PRN PRN Reason: Diastolic blood pressure Last Admin: 09/19/16 11:24 Dose: 1 ea Nitroglycerin (Nitro-Bid 2% Oint) 1 ea TOP Q6 [facility] Last Admin: 10/01/16 05:55 Dose: 1 ea Pantoprazole Sodium (Protonix Ec Tab) 40 mg PO DAILY [facility] Last Admin: 10/01/16 09:25 Dose: 40 mg Potassium Chloride (K-Dur 20 Meq Er Tab) 40 meq PO DAILY [facility] Last Admin: 10/01/16 09:25 Dose: 40 meq Thiamine HCl (Vitamin B1 Tab) 100 mg PO DAILY [facility] Last Admin: 10/01/16 09:26 Dose: 100 mg Trazodone HCl (Desyrel) 25 mg PO HS [facility] Last Admin: 09/30/16 21:32 Dose: 25 mg - Labs Labs: 09/30/16 14:20 09/26/16 07:04 PT 12.7 SECONDS (9.7-12.2) H 09/17/16 00:30 INR 1.1 09/17/16 00:30 - Constitutional Appears: Well - Head Exam Head Exam: ATRAUMATIC, NORMAL INSPECTION, NORMOCEPHALIC - Eye Exam Eye Exam: EOMI, Normal appearance, PERRL Pupil Exam: NORMAL ACCOMODATION, PERRL - ENT Exam ENT Exam: Mucous Membranes Moist, Normal Exam - Neck Exam Neck Exam: Full ROM, Normal Inspection. absent: Lymphadenopathy - Respiratory Exam Respiratory Exam: Decreased Breath Sounds - Cardiovascular Exam Cardiovascular Exam: REGULAR RHYTHM, +S1, +S2 - GI/Abdominal Exam GI & Abdominal Exam: Soft, Diminished Bowel Sounds - Rectal Exam Rectal Exam: Deferred
--- NOTE | 2016-10-01 16:19 | CP.PCM.PN ---
Subjective - Date & Time of Evaluation Date of Evaluation: 10/01/16 Time of Evaluation: 16:17 - Subjective Subjective: PT SEEN AND EXAMINED TODAY BY DR Chelsea RENE, PT DENIES ANY PAIN, RESPIRATION EASY AND UNLABORED. PT IS CALM AND COOPERATIVE, NOT AGITATED, WALKING WITH STEADY GAIT. NAD. Objective - Vital Signs/Intake and Output Vital Signs (last 24 hours): Temp Pulse Resp BP Pulse Ox 98.2 F 76 18 157/62 H 98 10/01/16 15:56 10/01/16 15:56 10/01/16 15:56 10/01/16 15:56 10/01/16 15:56 Intake and Output: 10/01/16 10/01/16 06:59 18:59 Intake Total 0 240 Balance 0 240 - Medications Medications: Current Medications Amlodipine Besylate (Norvasc) 10 mg PO DAILY [facility] Last Admin: 10/01/16 09:25 Dose: 10 mg Folic Acid (Folic Acid) 1 mg PO DAILY [facility] Last Admin: 10/01/16 09:25 Dose: 1 mg Haloperidol (Haldol) 2 mg PO Q4H PRN PRN Reason: agitation, max 4x/24h Last Admin: 09/22/16 17:50 Dose: 2 mg Haloperidol Lactate (Haldol) 2 mg IM Q4H PRN PRN Reason: severe agitation, max 4x/24h Last Admin: 09/25/16 21:27 Dose: 2 mg Hydralazine HCl (Apresoline) 50 mg PO TID [facility] Last Admin: 10/01/16 14:29 Dose: 50 mg Hydralazine HCl (Apresoline) 5 mg IVP Q6H PRN PRN Reason: Other Last Admin: 09/28/16 00:05 Dose: 5 mg Hydrochlorothiazide (Hydrodiuril) 25 mg PO DAILY [facility] Last Admin: 10/01/16 09:25 Dose: 25 mg Multivitamins (Hexavitamin) 1 tab PO DAILY [facility] Last Admin: 10/01/16 09:25 Dose: 1 tab Nitroglycerin (Nitro-Bid 2% Oint) 1 ea TOP Q6 PRN PRN Reason: Diastolic blood pressure Last Admin: 09/19/16 11:24 Dose: 1 ea Nitroglycerin (Nitro-Bid 2% Oint) 1 ea TOP Q6 [facility] Last Admin: 10/01/16 11:50 Dose: 1 ea Pantoprazole Sodium (Protonix Ec Tab) 40 mg PO DAILY [facility] Last Admin: 10/01/16 09:25 Dose: 40 mg Potassium Chloride (K-Dur 20 Meq Er Tab) 40 meq PO DAILY MICHEAL Last Admin: 10/01/16 09:25 Dose: 40 meq Thiamine HCl (Vitamin B1 Tab) 100 mg PO DAILY MICHEAL Last Admin: 10/01/16 09:26 Dose: 100 mg Trazodone HCl (Desyrel) 25 mg PO HS [facility] Last Admin: 09/30/16 21:32 Dose: 25 mg - Labs Labs: 09/30/16 14:20 09/26/16 07:04 PT 12.7 SECONDS (9.7-12.2) H 09/17/16 00:30 INR 1.1 09/17/16 00:30
[2016-10-01] MEDS: traZODone 25 mg Tab PO SCH (22:00)
[2016-10-02] MEDS: Nitroglycerin 2% Ointment Foilpak UD TOP SCH ×4 (00:25→18:32)
[2016-10-02] MEDS: Multiple Vitamins Tab PO SCH (10:10)
[2016-10-02] MEDS: Pantoprazole 40 mg EC Tab PO SCH (10:10)
[2016-10-02] MEDS: Potassium Chloride 20 mEq ER Tab PO SCH (10:11)
--- NOTE | 2016-10-02 10:17 | CP.PCM.PN ---
Subjective - Date & Time of Evaluation Date of Evaluation: 10/02/16 Time of Evaluation: 09:00 - Subjective Subjective: clinically same Objective - Vital Signs/Intake and Output Vital Signs (last 24 hours): Temp Pulse Resp BP Pulse Ox 98.3 F 63 20 171/77 H 98 10/02/16 07:00 10/02/16 07:00 10/02/16 07:00 10/02/16 07:00 10/02/16 07:00 Intake and Output: 10/02/16 10/02/16 06:59 18:59 Intake Total 0 Balance 0 - Medications Medications: Current Medications Amlodipine Besylate (Norvasc) 10 mg PO DAILY [facility] Last Admin: 10/02/16 10:10 Dose: 10 mg Folic Acid (Folic Acid) 1 mg PO DAILY [facility] Last Admin: 10/02/16 10:11 Dose: 1 mg Haloperidol (Haldol) 2 mg PO Q4H PRN PRN Reason: agitation, max 4x/24h Last Admin: 09/22/16 17:50 Dose: 2 mg Haloperidol Lactate (Haldol) 2 mg IM Q4H PRN PRN Reason: severe agitation, max 4x/24h Last Admin: 09/25/16 21:27 Dose: 2 mg Hydralazine HCl (Apresoline) 50 mg PO TID [facility] Last Admin: 10/02/16 10:11 Dose: 50 mg Hydralazine HCl (Apresoline) 5 mg IVP Q6H PRN PRN Reason: Other Last Admin: 09/28/16 00:05 Dose: 5 mg Hydrochlorothiazide (Hydrodiuril) 25 mg PO DAILY [facility] Last Admin: 10/02/16 10:11 Dose: 25 mg Multivitamins (Hexavitamin) 1 tab PO DAILY [facility] Last Admin: 10/02/16 10:10 Dose: 1 tab Nitroglycerin (Nitro-Bid 2% Oint) 1 ea TOP Q6 PRN PRN Reason: Diastolic blood pressure Last Admin: 09/19/16 11:24 Dose: 1 ea Nitroglycerin (Nitro-Bid 2% Oint) 1 ea TOP Q6 [facility] Last Admin: 10/02/16 05:28 Dose: 1 ea Potassium Chloride (K-Dur 20 Meq Er Tab) 40 meq PO DAILY [facility] Last Admin: 10/02/16 10:11 Dose: 40 meq Thiamine HCl (Vitamin B1 Tab) 100 mg PO DAILY [facility] Last Admin: 10/02/16 10:10 Dose: 100 mg Trazodone HCl (Desyrel) 25 mg PO [facility] Last Admin: 09/30/16 21:32 Dose: 25 mg - Labs Labs: 09/30/16 14:20 09/26/16 07:04 PT 12.7 SECONDS (9.7-12.2) H 09/17/16 00:30 INR 1.1 09/17/16 00:30 - Constitutional Appears: Well - Head Exam Head Exam: ATRAUMATIC, NORMAL INSPECTION, NORMOCEPHALIC - Eye Exam Eye Exam: EOMI, Normal appearance, PERRL Pupil Exam: NORMAL ACCOMODATION, PERRL - ENT Exam ENT Exam: Mucous Membranes Moist, Normal Exam - Neck Exam Neck Exam: Full ROM, Normal Inspection. absent: Lymphadenopathy - Respiratory Exam Respiratory Exam: Decreased Breath Sounds - Cardiovascular Exam Cardiovascular Exam: REGULAR RHYTHM, +S1, +S2 - GI/Abdominal Exam GI & Abdominal Exam: Soft, Diminished Bowel Sounds - Rectal Exam Rectal Exam: Deferred
[2016-10-02] MEDS: traZODone 25 mg Tab PO SCH (22:03)
[2016-10-03] MEDS: Nitroglycerin 2% Ointment Foilpak UD TOP SCH ×4 (00:15→17:18)
[2016-10-03 07:17] LABS: BASO # 0.1 K/uL (0.0-0.2); BASO % 1.1 % (0.0-2.0); EOS # 0.4 K/uL (0.0-0.7); EOS % 6.3 % (0.0-4.0); HEMATOCRIT 35.1 % (35.0-51.0); LYMPH # 1.8 K/uL (1.0-4.3); LYMPH % 29.7 % (20.0-40.0); MEAN CELL VOLUME 88.7 fL (80.0-94.0); MEAN CORPUSCULAR HEMOGLOBIN 29.5 pg (27.0-31.0); MEAN CORPUSCULAR HGB CONC 33.3 g/dL (33.0-37.0); MEAN PLATELET VOLUME 9.3 fL (7.2-11.7); MONO # 0.8 K/uL (0.0-0.8); MONO % 12.7 % (0.0-10.0); RED CELL DISTRIBUTION WIDTH 13.9 % (11.5-14.5)
[2016-10-03 07:35] LABS: CHLORIDE 96 mmol/L (98-107); POTASSIUM 3.8 mmol/L (3.6-5.2); SODIUM 137 mmol/L (132-148)
[2016-10-03 07:37] LABS: ALB/GLOB RATIO 1.3 (1.0-2.1); ALKALINE PHOSPHATASE 114 U/L (38-126); ALT/SGPT 17 U/L (21-72); AST/SGOT 23 U/L (17-59); BILIRUBIN,TOTAL 0.6 mg/dL (0.2-1.3); BLOOD UREA NITROGEN 23 mg/dL (9-20); CARBON DIOXIDE 29 mmol/L (22-30); GFR AFRICAN-AMERICAN > 60; GLUCOSE,RANDOM 88 mg/dL (75-110); TOTAL PROTEIN 7.1 g/dL (6.3-8.3)
[2016-10-03 07:38] LABS: CALCIUM 10.5 mg/dl (8.6-10.4)
[2016-10-03] MEDS: Potassium Chloride 20 mEq ER Tab PO SCH (09:20)
[2016-10-03] MEDS: Multiple Vitamins Tab PO SCH (09:20)
--- NOTE | 2016-10-03 18:15 | CP.PCM.PN ---
Subjective - Date & Time of Evaluation Date of Evaluation: 10/03/16 Time of Evaluation: 09:00 - Subjective Subjective: clinically same Objective - Vital Signs/Intake and Output Vital Signs (last 24 hours): Temp Pulse Resp BP Pulse Ox 98.1 F 76 18 148/58 L 99 10/03/16 15:57 10/03/16 15:57 10/03/16 15:57 10/03/16 15:57 10/03/16 15:57 Intake and Output: 10/03/16 10/03/16 06:59 18:59 Intake Total 0 Balance 0 - Medications Medications: Current Medications Amlodipine Besylate (Norvasc) 10 mg PO DAILY [facility] Last Admin: 10/03/16 09:20 Dose: 10 mg Folic Acid (Folic Acid) 1 mg PO DAILY [facility] Last Admin: 10/03/16 09:20 Dose: 1 mg Haloperidol (Haldol) 2 mg PO Q4H PRN PRN Reason: agitation, max 4x/24h Last Admin: 09/22/16 17:50 Dose: 2 mg Haloperidol Lactate (Haldol) 2 mg IM Q4H PRN PRN Reason: severe agitation, max 4x/24h Last Admin: 09/25/16 21:27 Dose: 2 mg Hydralazine HCl (Apresoline) 50 mg PO TID [facility] Last Admin: 10/03/16 17:18 Dose: 50 mg Hydralazine HCl (Apresoline) 5 mg IVP Q6H PRN PRN Reason: Other Last Admin: 09/28/16 00:05 Dose: 5 mg Hydrochlorothiazide (Hydrodiuril) 25 mg PO DAILY [facility] Last Admin: 10/03/16 09:20 Dose: 25 mg Multivitamins (Hexavitamin) 1 tab PO DAILY [facility] Last Admin: 10/03/16 09:20 Dose: 1 tab Nitroglycerin (Nitro-Bid 2% Oint) 1 ea TOP Q6 [facility] Last Admin: 10/03/16 17:18 Dose: 1 ea Potassium Chloride (K-Dur 20 Meq Er Tab) 40 meq PO DAILY [facility] Last Admin: 10/03/16 09:20 Dose: 40 meq Trazodone HCl (Desyrel) 25 mg PO HS [facility] Last Admin: 10/02/16 22:03 Dose: 25 mg - Labs Labs: 10/03/16 07:08 10/03/16 07:08 PT 12.7 SECONDS (9.7-12.2) H 09/17/16 00:30 INR 1.1 09/17/16 00:30
[2016-10-03] MEDS: traZODone 25 mg Tab PO SCH (22:46)
[2016-10-04] MEDS: Nitroglycerin 2% Ointment Foilpak UD TOP SCH ×4 (00:28→17:41)
[2016-10-04] MEDS: Potassium Chloride 20 mEq ER Tab PO SCH (09:46)
[2016-10-04] MEDS: Multiple Vitamins Tab PO SCH (09:46)
--- NOTE | 2016-10-04 13:34 | CP.PCM.PN ---
Subjective - Date & Time of Evaluation Date of Evaluation: 10/04/16 Time of Evaluation: 10:20 - Subjective Subjective: clinically same Objective - Vital Signs/Intake and Output Vital Signs (last 24 hours): Temp Pulse Resp BP Pulse Ox 98.3 F 98 H 18 167/81 H 99 10/04/16 09:42 10/04/16 09:42 10/04/16 09:42 10/04/16 09:42 10/04/16 09:42 Intake and Output: 10/04/16 10/04/16 06:59 18:59 Intake Total 600 Balance 600 - Medications Medications: Current Medications Amlodipine Besylate (Norvasc) 10 mg PO DAILY [facility] Last Admin: 10/04/16 09:46 Dose: 10 mg Haloperidol (Haldol) 2 mg PO Q4H PRN PRN Reason: agitation, max 4x/24h Last Admin: 09/22/16 17:50 Dose: 2 mg Haloperidol Lactate (Haldol) 2 mg IM Q4H PRN PRN Reason: severe agitation, max 4x/24h Last Admin: 09/25/16 21:27 Dose: 2 mg Hydralazine HCl (Apresoline) 50 mg PO TID [facility] Last Admin: 10/04/16 09:46 Dose: 50 mg Hydralazine HCl (Apresoline) 5 mg IVP Q6H PRN PRN Reason: Other Last Admin: 09/28/16 00:05 Dose: 5 mg Hydrochlorothiazide (Hydrodiuril) 25 mg PO DAILY [facility] Last Admin: 10/04/16 09:46 Dose: 25 mg Nitroglycerin (Nitro-Bid 2% Oint) 1 ea TOP Q6 [facility] Last Admin: 10/04/16 11:50 Dose: 1 ea Potassium Chloride (K-Dur 20 Meq Er Tab) 40 meq PO DAILY [facility] Last Admin: 10/04/16 09:46 Dose: 40 meq Trazodone HCl (Desyrel) 25 mg PO HS [facility] Last Admin: 10/03/16 22:46 Dose: 25 mg - Labs Labs: 10/03/16 07:08 10/03/16 07:08 PT 12.7 SECONDS (9.7-12.2) H 09/17/16 00:30 INR 1.1 09/17/16 00:30 - Constitutional Appears: Well - Head Exam Head Exam: ATRAUMATIC, NORMAL INSPECTION, NORMOCEPHALIC - Eye Exam Eye Exam: EOMI, Normal appearance, PERRL Pupil Exam: NORMAL ACCOMODATION, PERRL - ENT Exam ENT Exam: Mucous Membranes Moist, Normal Exam - Neck Exam Neck Exam: Full ROM, Normal Inspection. absent: Lymphadenopathy - Respiratory Exam Respiratory Exam: Decreased Breath Sounds - Cardiovascular Exam Cardiovascular Exam: REGULAR RHYTHM, +S1, +S2 - GI/Abdominal Exam GI & Abdominal Exam: Soft, Diminished Bowel Sounds - Rectal Exam Rectal Exam: Deferred
[2016-10-04 16:45] VITALS: RESP 20
[2016-10-04] MEDS: traZODone 25 mg Tab PO SCH (21:44)
[2016-10-05] MEDS: Nitroglycerin 2% Ointment Foilpak UD TOP SCH ×4 (00:05→18:56)
[2016-10-05 08:22] VITALS: O2SAT 98
[2016-10-05] MEDS: Potassium Chloride 20 mEq ER Tab PO SCH ×2 (09:16→13:04)
[2016-10-05] MEDS: traZODone 25 mg Tab PO SCH (23:15)
[2016-10-06] MEDS: Nitroglycerin 2% Ointment Foilpak UD TOP SCH ×3 (00:28→17:27)
[2016-10-06] MEDS: Potassium Chloride 20 mEq ER Tab PO SCH (10:17)
--- NOTE | 2016-10-06 13:10 | CP.PCM.PN ---
Subjective - Date & Time of Evaluation Date of Evaluation: 10/06/16 Time of Evaluation: 13:08 - Subjective Subjective: PT SEEN AND EXAMINED TODAY, PT IS AWAKE, ALERT, CALM, COOPERATIVE, WALKING WITH STEADY GAIT, RESPIRATION EASY AND UNLABORED. NAD. VSS, PT CLEARED BY PSYCH AND DR RENE FOR D/C. PT WILL BE DISCHARGE HOME WITH FAMILY. Objective - Vital Signs/Intake and Output Vital Signs (last 24 hours): Temp Pulse Resp BP Pulse Ox 97.9 F 69 20 171/77 H 98 10/06/16 08:22 10/06/16 08:22 10/06/16 08:22 10/06/16 08:22 10/06/16 08:22 Intake and Output: 10/06/16 10/06/16 06:59 18:59 Intake Total 650 Balance 650 - Medications Medications: Current Medications Amlodipine Besylate (Norvasc) 10 mg PO DAILY [facility] Last Admin: 10/06/16 10:17 Dose: 10 mg Haloperidol (Haldol) 2 mg PO Q4H PRN PRN Reason: agitation, max 4x/24h Last Admin: 09/22/16 17:50 Dose: 2 mg Haloperidol Lactate (Haldol) 2 mg IM Q4H PRN PRN Reason: severe agitation, max 4x/24h Last Admin: 09/25/16 21:27 Dose: 2 mg Hydralazine HCl (Apresoline) 50 mg PO TID [facility] Last Admin: 10/06/16 10:17 Dose: 50 mg Hydralazine HCl (Apresoline) 5 mg IVP Q6H PRN PRN Reason: Other Last Admin: 09/28/16 00:05 Dose: 5 mg Hydrochlorothiazide (Hydrodiuril) 25 mg PO DAILY [facility] Last Admin: 10/06/16 10:17 Dose: 25 mg Nitroglycerin (Nitro-Bid 2% Oint) 1 ea TOP Q6 [facility] Last Admin: 10/06/16 05:59 Dose: 1 ea Potassium Chloride (K-Dur 20 Meq Er Tab) 20 meq PO DAILY [facility] Last Admin: 10/06/16 10:17 Dose: 20 meq Trazodone HCl (Desyrel) 25 mg PO HS [facility] Last Admin: 10/05/16 23:15 Dose: 25 mg - Labs Labs: 10/03/16 07:08 10/03/16 07:08 PT 12.7 SECONDS (9.7-12.2) H 09/17/16 00:30 INR 1.1 09/17/16 00:30
--- NOTE | 2016-10-06 16:35 | CP.PCM.PN ---
Subjective - Date & Time of Evaluation Date of Evaluation: 10/06/16 Time of Evaluation: 10:20 - Subjective Subjective: clinically same Objective - Vital Signs/Intake and Output Vital Signs (last 24 hours): Temp Pulse Resp BP Pulse Ox 98.2 F 77 20 144/66 98 10/06/16 15:36 10/06/16 15:36 10/06/16 15:36 10/06/16 15:36 10/06/16 15:36 Intake and Output: 10/06/16 10/06/16 06:59 18:59 Intake Total 650 300 Balance 650 300 - Medications Medications: Current Medications Amlodipine Besylate (Norvasc) 10 mg PO DAILY [facility] Last Admin: 10/06/16 10:17 Dose: 10 mg Haloperidol (Haldol) 2 mg PO Q4H PRN PRN Reason: agitation, max 4x/24h Last Admin: 09/22/16 17:50 Dose: 2 mg Haloperidol Lactate (Haldol) 2 mg IM Q4H PRN PRN Reason: severe agitation, max 4x/24h Last Admin: 09/25/16 21:27 Dose: 2 mg Hydralazine HCl (Apresoline) 50 mg PO TID [facility] Last Admin: 10/06/16 14:52 Dose: 50 mg Hydralazine HCl (Apresoline) 5 mg IVP Q6H PRN PRN Reason: Other Last Admin: 09/28/16 00:05 Dose: 5 mg Hydrochlorothiazide (Hydrodiuril) 25 mg PO DAILY [facility] Last Admin: 10/06/16 10:17 Dose: 25 mg Nitroglycerin (Nitro-Bid 2% Oint) 1 ea TOP Q6 [facility] Last Admin: 10/06/16 05:59 Dose: 1 ea Potassium Chloride (K-Dur 20 Meq Er Tab) 20 meq PO DAILY [facility] Last Admin: 10/06/16 10:17 Dose: 20 meq Trazodone HCl (Desyrel) 25 mg PO HS [facility] Last Admin: 10/05/16 23:15 Dose: 25 mg - Labs Labs: 10/03/16 07:08 10/03/16 07:08 PT 12.7 SECONDS (9.7-12.2) H 09/17/16 00:30 INR 1.1 09/17/16 00:30 - Constitutional Appears: Well - Head Exam Head Exam: ATRAUMATIC, NORMAL INSPECTION, NORMOCEPHALIC - Eye Exam Eye Exam: EOMI, Normal appearance, PERRL Pupil Exam: NORMAL ACCOMODATION, PERRL - ENT Exam ENT Exam: Mucous Membranes Moist, Normal Exam - Neck Exam Neck Exam: Full ROM, Normal Inspection. absent: Lymphadenopathy - Respiratory Exam Respiratory Exam: Decreased Breath Sounds - Cardiovascular Exam Cardiovascular Exam: REGULAR RHYTHM, +S1, +S2 - GI/Abdominal Exam GI & Abdominal Exam: Soft, Diminished Bowel Sounds - Rectal Exam Rectal Exam: Deferred
--- NOTE | 2016-10-06 16:43 | CP.PCM.PN ---
Subjective - Date & Time of Evaluation Date of Evaluation: 10/06/16 Time of Evaluation: 16:41 - Subjective Subjective: 70 Y/O MALE SEEN AND EXAMINED ADMITTED FOR AMS, DEMENTIA, PT HAS BEEN SEEN BY PSYCH, IMPROVED W/TREATMENT WHILE HERE, NAD PT D/C HOME PER DR RENE AND DR STANLEY MED REC DONE, RX FOR NORVASC, FOLIC ACID, HYDROCHLOROTHIAZIDE, MVT. K-DUR, TRAZADONE, HYDRALAZINE GIVEN F/U W/PMD AND DR STANLEY CALL DR RENE'S OFFICE IF ANY FURTHER QUESTIONS Objective - Vital Signs/Intake and Output Vital Signs (last 24 hours): Temp Pulse Resp BP Pulse Ox 98.2 F 77 20 144/66 98 10/06/16 15:36 10/06/16 15:36 10/06/16 15:36 10/06/16 15:36 10/06/16 15:36 Intake and Output: 10/06/16 10/06/16 06:59 18:59 Intake Total 650 300 Balance 650 300 - Medications Medications: Current Medications Amlodipine Besylate (Norvasc) 10 mg PO DAILY [facility] Last Admin: 10/06/16 10:17 Dose: 10 mg Haloperidol (Haldol) 2 mg PO Q4H PRN PRN Reason: agitation, max 4x/24h Last Admin: 09/22/16 17:50 Dose: 2 mg Haloperidol Lactate (Haldol) 2 mg IM Q4H PRN PRN Reason: severe agitation, max 4x/24h Last Admin: 09/25/16 21:27 Dose: 2 mg Hydralazine HCl (Apresoline) 50 mg PO TID [facility] Last Admin: 10/06/16 14:52 Dose: 50 mg Hydralazine HCl (Apresoline) 5 mg IVP Q6H PRN PRN Reason: Other Last Admin: 09/28/16 00:05 Dose: 5 mg Hydrochlorothiazide (Hydrodiuril) 25 mg PO DAILY [facility] Last Admin: 10/06/16 10:17 Dose: 25 mg Nitroglycerin (Nitro-Bid 2% Oint) 1 ea TOP Q6 [facility] Last Admin: 10/06/16 05:59 Dose: 1 ea Potassium Chloride (K-Dur 20 Meq Er Tab) 20 meq PO DAILY [facility] Last Admin: 10/06/16 10:17 Dose: 20 meq Trazodone HCl (Desyrel) 25 mg PO HS [facility] Last Admin: 10/05/16 23:15 Dose: 25 mg - Labs Labs: 10/03/16 07:08 10/03/16 07:08 PT 12.7 SECONDS (9.7-12.2) H 09/17/16 00:30 INR 1.1 09/17/16 00:30
[2016-10-06] MEDS: traZODone 25 mg Tab PO SCH (22:16)
[2016-10-07 00:37] VITALS: PULSE 61; TEMP 98.5
[2016-10-07] MEDS: Nitroglycerin 2% Ointment Foilpak UD TOP SCH ×2 (00:48→05:30)
[2016-10-07 05:30] VITALS: BP 160/76
[2016-10-07] MEDS: Potassium Chloride 20 mEq ER Tab PO SCH (09:35)
--- NOTE | 2016-10-13 14:39 | CARD ---
APPROVED REPORT EKG Measurement Heart [id number] SD [id number] <Conclusion> Sinus tachycardia Right atrial enlargement Left ventricular hypertrophy with repolarization abnormality Cannot rule out Septal infarct, age undetermined Abnormal ECG
== END 2016-10-07 10:56 | disposition home or self-care (01) | DRG 884 ==
LOC: C.ER 23:19 → C.9E 09-17 02:00 → C.6T 09-17 04:19
PROVIDERS: ADMIT Internal Medicine Nephrology; ATTEND Internal Medicine Nephrology
DX: F03.90 Unspecified dementia, unspecified severity, without behavioral disturbance, psychotic disturbance, mood disturbance, and anxiety (principal); G92 Toxic encephalopathy; G12.9 Spinal muscular atrophy, unspecified; I10 Essential (primary) hypertension; I73.9 Peripheral vascular disease, unspecified; M41.9 Scoliosis, unspecified; F17.200 Nicotine dependence, unspecified, uncomplicated; F10.10 Alcohol abuse, uncomplicated; Y90.0 Blood alcohol level of less than 20 mg/100 ml